=== PATIENT | male | born 1945 | race Caucasian/White ===

== ENCOUNTER → 2024-05-07 07:54 | Outpatient (REF) | payer OTHER, SELFPAY | LOC: WOUND 07:54 | PROVIDERS: ATTENDING PHYSICIAN Surgery; FAMILY PHYSICIAN Physician Assistant | DX: E11.621 Type 2 diabetes mellitus with foot ulcer (principal); L97.422 Non-pressure chronic ulcer of left heel and midfoot with fat layer exposed; M20.40 Other hammer toe(s) (acquired), unspecified foot; E11.40 Type 2 diabetes mellitus with diabetic neuropathy, unspecified; E11.69 Type 2 diabetes mellitus with other specified complication; E11.59 Type 2 diabetes mellitus with other circulatory complications; E11.22 Type 2 diabetes mellitus with diabetic chronic kidney disease | CPT/HCPCS: 11042; 99204 ==

== ENCOUNTER → 2024-05-14 14:21 | Outpatient (REF) | payer OTHER, SELFPAY | LOC: WOUND 14:21 | PROVIDERS: ATTENDING PHYSICIAN Surgery; FAMILY PHYSICIAN Internal Medicine Cardiovascular Disease | DX: E11.621 Type 2 diabetes mellitus with foot ulcer (principal); L97.422 Non-pressure chronic ulcer of left heel and midfoot with fat layer exposed; M20.40 Other hammer toe(s) (acquired), unspecified foot; E11.40 Type 2 diabetes mellitus with diabetic neuropathy, unspecified; E11.69 Type 2 diabetes mellitus with other specified complication; E11.59 Type 2 diabetes mellitus with other circulatory complications; E11.22 Type 2 diabetes mellitus with diabetic chronic kidney disease | CPT/HCPCS: 11042 ==

== ENCOUNTER → 2024-05-21 09:08 | Outpatient (REF) | payer OTHER, SELFPAY | LOC: WOUND 09:08 | PROVIDERS: ATTENDING PHYSICIAN Surgery; FAMILY PHYSICIAN Physician Assistant | DX: E11.621 Type 2 diabetes mellitus with foot ulcer (principal); L97.422 Non-pressure chronic ulcer of left heel and midfoot with fat layer exposed; M20.40 Other hammer toe(s) (acquired), unspecified foot; E11.40 Type 2 diabetes mellitus with diabetic neuropathy, unspecified | CPT/HCPCS: 11042 ==

== ENCOUNTER → 2024-05-28 13:40 | Outpatient (REF) | payer OTHER, SELFPAY | LOC: WOUND 13:40 | PROVIDERS: ATTENDING PHYSICIAN Surgery; FAMILY PHYSICIAN Nurse Practitioner | DX: E11.621 Type 2 diabetes mellitus with foot ulcer (principal); L97.422 Non-pressure chronic ulcer of left heel and midfoot with fat layer exposed; M20.40 Other hammer toe(s) (acquired), unspecified foot; E11.40 Type 2 diabetes mellitus with diabetic neuropathy, unspecified; E11.69 Type 2 diabetes mellitus with other specified complication; E11.59 Type 2 diabetes mellitus with other circulatory complications; E11.22 Type 2 diabetes mellitus with diabetic chronic kidney disease | CPT/HCPCS: 99213 ==

== ENCOUNTER → 2024-06-16 10:40 | Outpatient (REF) | payer OTHER, SELFPAY | LOC: WOUND 10:40 | PROVIDERS: ATTENDING PHYSICIAN Surgery; FAMILY PHYSICIAN Nurse Practitioner | DX: E11.621 Type 2 diabetes mellitus with foot ulcer (principal); L97.422 Non-pressure chronic ulcer of left heel and midfoot with fat layer exposed; M20.40 Other hammer toe(s) (acquired), unspecified foot; E11.40 Type 2 diabetes mellitus with diabetic neuropathy, unspecified; E11.69 Type 2 diabetes mellitus with other specified complication; E11.59 Type 2 diabetes mellitus with other circulatory complications; E11.22 Type 2 diabetes mellitus with diabetic chronic kidney disease | CPT/HCPCS: 99213 ==

== ENCOUNTER → 2024-06-29 13:02 | Outpatient (REF) | payer OTHER, SELFPAY | LOC: WOUND 13:02 | PROVIDERS: ATTENDING PHYSICIAN Surgery; FAMILY PHYSICIAN Nurse Practitioner | DX: E11.621 Type 2 diabetes mellitus with foot ulcer (principal); L97.422 Non-pressure chronic ulcer of left heel and midfoot with fat layer exposed; M20.40 Other hammer toe(s) (acquired), unspecified foot; E11.40 Type 2 diabetes mellitus with diabetic neuropathy, unspecified; E11.69 Type 2 diabetes mellitus with other specified complication; E11.59 Type 2 diabetes mellitus with other circulatory complications; E11.22 Type 2 diabetes mellitus with diabetic chronic kidney disease | CPT/HCPCS: 99213 ==

== ENCOUNTER → 2024-07-16 13:10 | Outpatient (REF) | payer OTHER, SELFPAY | LOC: WOUND 13:10 | PROVIDERS: ATTENDING PHYSICIAN Surgery | DX: L97.422 Non-pressure chronic ulcer of left heel and midfoot with fat layer exposed (principal); M20.40 Other hammer toe(s) (acquired), unspecified foot; E11.40 Type 2 diabetes mellitus with diabetic neuropathy, unspecified; E11.69 Type 2 diabetes mellitus with other specified complication; E11.59 Type 2 diabetes mellitus with other circulatory complications; E11.22 Type 2 diabetes mellitus with diabetic chronic kidney disease; N18.9 Chronic kidney disease, unspecified | CPT/HCPCS: 11042 ==

== ENCOUNTER 2024-07-17 12:09 | Inpatient (IN) | payer OTHER, SELFPAY ==
[2024-07-17] VITALS (17 sets, daily range): BP systolic 130–211; BP diastolic 63–109; PULSE 79; BMI 31.1
--- NOTE | 2024-07-17 05:40 | ED.GENMED ---
History of Present Illness
General
Chief Complaint: Back Pain
Source: patient, family ( and son present at the bedside) and ambulance crew
Exam Limitations: clinical condition
Time Seen by Provider: 07/17/24 04:37
History of Present Illness
History of Present Illness:
This an 79-year-old male presents to the emergency department via ambulance for weakness. According to , he got up to go to the bathroom but could not quite make it. Patient was unable to stand up due to back pain. He states that he has been
having acute on chronic low back pain. Patient received a steroid shot on July 15 in his back. Patient states that the pain did not get alleviated by the steroid. Patient also had a COVID shot 7 days ago but he has been feeling body aches
since. Patient has had loose stools during the week but yesterday he had a normal bowel movement. Patient stated he felt warm this evening. Upon arrival his temperature was 100.3. He did not take anything. Patient is accompanied by his and
son were present at the bedside.
Past History
Past History
ED Past Medical History: Asthma, HTN and Hypercholesterolemia
ED Past Surgical History: None
Social History
Tobacco: Non-smoker
Alcohol: Occasional
Personal:
Living: with family
Review of Systems
Review of Systems
Allergies reviewed?: Yes
Other source history: family
All Other Systems: ROS reviewed and negative except as documented in HPI and ROS
Constitutional: Reports no symptoms
EENT: Reports no symptoms
Respiratory: Reports no symptoms
Cardiac: Reports no symptoms
ABD/GI: Reports no symptoms
: Reports no symptoms
Musculoskeletal: Reports no symptoms
Skin: Reports no symptoms
Neurological: Denies dizzy or headache
Endocrine: Reports no symptoms
Hematologic/Lymphatic: Reports no symptoms
Psychiatric: Reports no symptoms
Phy Exam
General Physical Exam
General Presentation: mild distress
General age: appears older than age
General Skin: warm and dry
General Habitus: elderly and frail
General Mental: alert
General Hydration: appears well hydrated
ENT Exam
ENT Exam: EOMI and neck supple
Cardiovascular Exam
Cardiovascular Exam: regular rate/rhythm
Pulmonary Exam
Pulmonary Exam: lungs clear and no respiratory distress
Neurological Exam
Neurological Exam: alert and oriented x3
Musculoskeletal Exam
Musculoskeletal Exam: full ROM
Skin Exam
Skin Exam: warm/dry and pallor
Psychiatric Exam
Psychiatric Exam: normal mood/affect
Sepsis
Sepsis Screening
Sepsis Assessment: Sepsis Ruled Out
Sepsis Screen
Sepsis Screen: Sepsis Ruled Out
Date: 07/17/24
Time: 07:07
Course
Orders/Labs/Results
Orders:
Orders
07/17/24 05:39
0.9% Sodium Chloride 1000 ml [Nss] 1,000 ml IV BOLUS
07/17/24 05:45
CPK [Creatine Phosphokinase] Urgent
Complete Blood Count/With Diff Urgent
Comprehensive Metabolic Panel Urgent
Lipase Urgent
Urinalysis Reflex To Culture Urgent
Date Specimen was Collected: 07/17/24
Time Specimen was Collected: 05:36
07/17/24 06:19
Acetaminophen [Tylenol] 1,000 mg PO NOW STA
07/17/24 06:58
Case Management Consult ONCE
Case Management Consult: Discharge Planning
PT Consult [Pt Eval And Treat] Urgent
Activity Level: Out of Bed-Early Mobility
Abnormal Lab Results
07/17/24
05:45
RBC 4.56 L 10^6/uL
(4.70-6.10)
MCH 31.6 H pg
(27.0-31.0)
Absolute Neuts (auto) 7.2 H 10^3/uL
(1.4-6.5)
Absolute Lymphs (auto) 0.5 L 10^3/uL
(1.2-3.4)
Neutrophils % 86.9 H %
(42.2-75.2)
Lymphocytes % 5.4 L %
(20.5-51.1)
Urine Glucose 1+ A
(Negative)
07/17/24 05:45
Vital Signs
Initial and Last Documented VS:
Initial Vital Signs
Pulse Resp BP Pulse Ox
104 30 188/81 92
07/17/24 04:34 07/17/24 04:34 07/17/24 04:34 07/17/24 04:34
Last Documented Vital Signs
Temp Pulse Resp BP Pulse Ox
100.1 F 93 28 162/78 91
07/17/24 07:01 07/17/24 07:00 07/17/24 07:00 07/17/24 07:00 07/17/24 07:00
*Critical Care Note
Total Time (30-74mins, 75-104mins- exclusive of procedures): Not Applicable
Update Note
Update Note:
07/17/2024 0659 AM: Patient still feeling weak. Patient lives with and son. Son is not home most nights. is concerned due to his weakness. is unable to get up off the floor. She states that he has had weakness in the past but
this is more severe than typical. Lab work looks unremarkable. Patient did have a history of loose stools but that resolved yesterday. COVID shot aftermath left patient with bodyaches but that is improving. No definitive etiology for the
weakness. Patient does see wound care for his toe. Case management and physical therapy consulted. Patient to be brought in for continued observation.
ED Attending Note
-
Portions of this chart may have been created with voice recognition software.� Occasional wrong word or��sound alike� substitutions may have occurred due to the inherent limitations of voice recognition software.
Discharge Plan
Departure
Patient Disposition: Admit
Date of Disposition: 07/17/24
Time of Disposition: 07:01
Presentation/result/management discussed w/ accepting MD/DO: Hospitalist
Condition: Good
Discharge Problem:
Weakness, Fall
Prescriptions:
No Action
omeprazole 40 MG capsule,delayed release(DR/EC)
40 mg PO DAILY
tamsulosin 0.4 MG capsule
0.4 mg PO DAILY
metformin 1,000 MG tablet
1,000 mg PO BID
montelukast 10 MG tablet
10 mg PO DAILY
fenofibrate 160 MG tablet
160 mg PO HS
Trulicity 0.75 MG/0.5 ML pen injector
0.75 mg SQ WEEKLY
cholecalciferol (vitamin D3) [Vitamin D3] 125 mcg (5,000 unit) Tablet
125 mcg PO DAILY
Probiotic 3 billion cell Capsule
3,000 mmu cells PO DAILY
guaifenesin [Mucinex] 600 mg Tablet Extended Release 12hr
600 mg PO DAILY
Qvar RediHaler 80 mcg/actuation Hfa Aerosol Breath Activated
1 inh INHALATION PRN PRN (Reason: shortness of breath)
latanoprost 0.005 % Drops
1 drp OPHTHALMIC (EYE) QPM
ascorbic acid (vitamin C) [Vitamin C] 250 mg Tablet
250 mg PO .4DAYSAWEEK
coenzyme Q10 [Co Q-10] 100 mg Capsule
100 mg PO DAILY
Calcium Magnesium plus D 400-167-133 mg-mg-unit Tablet
1 tab PO DAILY
omega 5-eln-mse-fish oil [Fish Oil] 1,200 (144-216) mg Capsule
1 cap PO .4DAYSAWEEK
Centrum
1 tab PO DAILY
vitamin E
800 mg PO DAILY
oxycodone 5 mg tablet
5 - 10 mg PO Q6HPRN PRN (Reason: 1 tab moderate-2 tabs severe pain) Qty: 30 0RF
Rx Instructions:
Dx TKA
ongoing therapy
acetaminophen [Acetaminophen Extra Strength] 500 mg tablet
1,000 mg PO Q6H Qty: 60 0RF
Rx Instructions:
DO NOT exceed >4000 mg daily.
docusate sodium [Colace] 100 mg capsule
100 mg PO BID Qty: 60 0RF
sennosides [senna] 8.6 mg tablet
17.2 mg PO BID Qty: 30 0RF
indapamide 2.5 mg Tablet
2.5 mg PO DAILY Qty: 1 0RF
Rx Instructions:
HOLD if systolic blood pressure <145 while on Oxycodone.
amlodipine 2.5 MG tablet
2.5 mg PO DAILY Qty: 1 0RF
Rx Instructions:
HOLD if systolic blood pressure <130 while on Oxycodone.
spironolactone 25 mg Tablet
25 mg PO DAILY Qty: 1 0RF
Rx Instructions:
HOLD if systolic blood pressure <145 while on Oxycodone.
albuterol sulfate 90 mcg/actuation Hfa Aerosol Inhaler
2 puff INHALATION Q4HPRN PRN (Reason: shortness of breath) Qty: 8.5 0RF
levalbuterol HCl 0.31 mg/3 mL Solution For Nebulization
1 mg INHALATION Q6HPRN PRN (Reason: shortness of breath) Qty: 0 0RF
aspirin 325 mg tablet
81 mg PO 4-8XD
Rx Instructions:
Take daily x4 weeks for blood clot prevention; then resume Aspirin 81 mg daily.
meloxicam 15 mg tablet
15 mg PO HS
Rx Instructions:
take with food
post-op
lisinopril 40 MG tablet
40 mg PO HS
Rx Instructions:
HOLD if systolic blood pressure <130 while on Oxycodone.
Referrals:
Donna Murillo CRNP [Family Provider] -
Interventions
Interventions:
*Risk Screen - Suicide Last Done: 07/17/24 04:35
*General Assessment Last Done: 07/17/24 04:35
*Neglect/Abuse Screening Last Done: 07/17/24 04:35
ED- Fall Risk Assessment Last Done: 07/17/24 06:30
*ED COVID-19 Vaccine History Last Done: 07/17/24 04:35
ED-Musculoskeletal Assessment Last Done: 07/17/24 07:04
Discharge Date and Time
Print Language: [place]
[2024-07-17] MEDS: NSS 1000 IV (05:55)
[2024-07-17 06:09] LABS: % Basophils 0.1 % (0-2); % Immature Granulocytes 0.5 % (0-0.5); % Lymphocytes 5.4 % (20.5-51.1); % Monocytes 7.1 % (1.7-9.3); % Neutrophils 86.9 % (42.2-75.2); Absolute Lymphocytes 0.5 10^3/uL (1.2-3.4); Absolute Monocytes 0.6 10^3/uL (0.1-0.6); Absolute Neutrophils 7.2 10^3/uL (1.4-6.5); Hematocrit 41.2 % (39.0-52.0); Hemoglobin 14.4 g/dL (13.0-18.0); Mean Corpuscular Hgb 31.6 pg (27.0-31.0); Mean Corpuscular Volume 90.4 fL (80.0-94.0); Mean Platelet Volume 9.1 fL (7.4-10.4); Nucleated Red Blood Cells % 0 % (-); Platelet Count 219 10^3/uL (130-400); Red Blood Cell Count 4.56 10^6/uL (4.70-6.10); Red Cell Dist. Width 12.6 % (11.5-14.5); White Blood Cell Count 8.3 10^3/uL (4.8-10.8)
[2024-07-17 06:19] LABS: Urine Albumin Trace (Neg - Trace); Urine Bilirubin Negative (Negative); Urine Character Clear (Clear); Urine Color Yellow; Urine Glucose 1+ (Negative); Urine Ketone Negative (Negative); Urine Leukocyte Negative (Negative); Urine Nitrite Negative (Negative); Urine Occult Blood Negative (Negative); Urine Specific Gravity 1.015 (<1.030); Urine Urobilinogen Negative (Neg - 1+)
[2024-07-17] MEDS: TYLENOL 1000 MG PO (06:22)
[2024-07-17 07:09] LABS: Blood Urea Nitrogen 25 mg/dl (9-20); Calcium 9.5 mg/dl (8.4-10.2); Carbon Dioxide 28 mmol/L (22-30); Chloride 95 mmol/L (98-107); Creatine Phosphokinase 167 U/L (55-170); Estimated Creatinine Clearance 78 ml/min; Glucose 178 mg/dl (70-99); Lipase 82 U/L (23-300); Sodium 137 mmol/L (135-145); eGFR > 60.00
--- NOTE | 2024-07-17 08:26 | PHANOTE ---
med rec note- called patient [facility] using but the do not have medication filled for him but metformin and Tricor. used ecw. patient claims he takes oxycodone but no pdmp fills for drug
--- NOTE | 2024-07-17 09:31 | CM ---
Addendum entered by Terri Yip RN 07/17/24 13:14:
CM updated that patient is inpatient.
Addendum entered by Terri Yip RN 07/17/24 11:36:
CM met with family in room. Patient's and son expressed concern regarding patient's clinical presentation. Family had questions regarding the etiology of patient's weakness. Patient's further stated that it is only her to provide care for
him and she stated that she recently had a stroke. She stated that she has children available to assist but they work guide visitor and would not be available 24 hours. Patient is refusing SNF placement from the emergency room. CM discussed with family
and patient SNF may be recommended on discharge pending further PT evaluation. Patient would consider SNF. Patient's stated that she lives [facility] to [facility] and would consider it on discharge.
CM updated hospitalist and ER physician. Plan to bring into the hospital for further observation and disposition efforts.
Original Note:
CM reviewed medical records. CM received call from bedside RN to notify CM of consult. CM will await PT notes.
--- NOTE | 2024-07-17 11:25 | HPS.HSE ---
Family Physician
-
Family Physician: BRANDI Fall
Chief Complaint
-
weakness, chills, acute on chronic lower back pain
History of Present Illness
HPI: 79-year-old male with PMH lower back pain (recent epidural injection 3 days AUTO LOCATOR), Hypertension, Hyperlipidemia, Bifascicular heart block, COPD/ Asthma, Noninsulin-dependent diabetes, Obstructive sleep apnea not on CPAP, GERD, BPH; p/w
generalized weakness, chills, acute on chronic lower back pain since 3 days AUTO LOCATOR (after Epidural injection 07/15 per pt). He has been so weakness that he could not make it to the bathroom.
Of note, he also had COVID shot 7 days AUTO LOCATOR.
Medical History
Past Medical History
Past Medical History: Reports Other
Additional Past Medical History:
lower back pain
Hypertension
Hyperlipidemia
Bifascicular heart block
COPD/ Asthma
Noninsulin-dependent diabetes
Obstructive sleep apnea not on CPAP
GERD
BPH
Past Surgical History: Reports Other
Additional Past Surgical History:
1. Lumbar spine surgery, 1997.
2. Cervical spine surgery, 1999.
3. Right rotator cuff repair, 2001.
4. Sinus surgery.
Social History
Tobacco: Non-smoker
Alcohol: None
Personal:
Living: With Family
Family History
Family History: Not pertinent
Allergies / Home Medications
Allergies reflects when Allergies were last updated in [employer].
Home Medications with original date entered in [employer]
Allergy/Medication List:
Allergies
Allergy/AdvReac Type Severity Reaction Status Date / Time
[id number]-[id number] Reductase Allergy muscle Verified 07/17/24 04:34
Inhibitor weakness
NKA - No Known Allergies Allergy Severe Unknown Uncoded 11/16/22 09:04
Home Medications
fenofibrate 160 mg tablet 160 mg PO HS High cholesterol 05/10/21
metformin 1,000 mg tablet 1,000 mg PO BID Diabetes 05/10/21
montelukast 10 mg tablet 10 mg PO DAILY Allergies 05/10/21
omeprazole 40 mg capsule,delayed release 40 mg PO DAILY Gastrointestinal issue 05/10/21
tamsulosin 0.4 mg capsule 0.4 mg PO DAILY Urinary issue 05/10/21
ascorbic acid (vitamin C) 250 mg tablet (Vitamin C) 250 mg PO SUTUTHFR 11/16/22
beclomethasone dipropionate 80 mcg/actuation HFA breath activated aerosol (Qvar RediHaler) 1 inh inhalation PRN PRN shortness of breath 11/16/22
calcium 400 mg (carbonate)-magnesium 167 mg (oxide)-D3 133 unit tablet (Calcium Magnesium plus D) 1 tab PO DAILY 11/16/22
cholecalciferol (vitamin D3) 125 mcg (5,000 unit) tablet (Vitamin D3) 125 mcg PO DAILY 11/16/22
guaifenesin 600 mg tablet, extended release 12 hr (Mucinex) 600 mg PO DAILY 11/16/22
latanoprost 0.005 % eye drops 1 drp BOTH EYES QPM 11/16/22
therapeutic multivitamin 1 tab PO DAILY ##0 11/16/22
amlodipine 2.5 mg tablet 2.5 mg PO DAILY Blood pressure #1 tab 12/11/22
docusate sodium 100 mg capsule (Colace) 100 mg PO BID #60 caps 12/11/22
indapamide 2.5 mg tablet 2.5 mg PO DAILY #1 tab 12/11/22
sennosides 8.6 mg tablet (senna) 17.2 mg (2 x 8.6 mg) PO BID #30 tabs 12/11/22
spironolactone 25 mg tablet 25 mg PO DAILY #1 tab 12/11/22
albuterol sulfate 90 mcg/actuation aerosol inhaler 2 puff inhalation R Q4HPRN PRN shortness of breath 07/17/24
coQ10 (ubiquinol) 100 mg capsule 100 mg PO DAILY 07/17/24
lisinopril 40 mg tablet 40 mg PO HS Blood pressure 07/17/24
semaglutide 0.25 mg or 0.5 mg (2 mg/1.5 mL) subcutaneous pen injector (Ozempic) 0.25 mg SC [place] 07/17/24
Review of Systems
-
Constitutional: Reports Fatigue (weakness) and Chills
Musculoskeletal: Reports See HPI
Physical Exam
Vital Signs
Vital Signs
Temp Pulse Resp BP Pulse Ox
37.8 C 83 18 135/68 92
07/17/24 07:01 07/17/24 10:15 07/17/24 10:15 07/17/24 10:00 07/17/24 07:15
Physical Exam
General: Well Developed, Well Nourished, No Apparent Distress, Comfortable and Conversant
HEENT: NormoCephalic, Moist mucous membranes and Atraumatic
Respiratory: Clear and Non Labored Respirations; No Accessory Resp Muscle Use
Cardiac: S1/S2 and Regular Rhythm; No Murmur or Rub
GI: Soft, Non Tender, Non Distended and Normal Bowel Sounds; No Organomegaly
Rectal: Deferred by Provider
Musculoskeletal: No Clubbing, No Cyanosis, No Edema and Other (R lumbar area pain)
Skin: No Rash
Neuro: Awake and Alert
Psych: Calm and Intact Judgment/Insight
Laboratory Results
-
07/17/24 05:45
07/17/24 05:45
Laboratory Results
Total Bilirubin Cancelled 07/17/24 05:45
AST Cancelled 07/17/24 05:45
ALT Cancelled 07/17/24 05:45
Alkaline Phosphatase Cancelled 07/17/24 05:45
Lipase 82 U/L (23-300) 07/17/24 05:45
Data Reviewed
-
Lab Data: Labs Reviewed by me
Impression/Plan
-
HPI: 79-year-old male with PMH lower back pain (recent epidural injection 3 days AUTO LOCATOR), Hypertension, Hyperlipidemia, Bifascicular heart block, COPD/ Asthma, Noninsulin-dependent diabetes, Obstructive sleep apnea not on CPAP, GERD, BPH; p/w
generalized weakness, chills, acute on chronic lower back pain since 3 days AUTO LOCATOR (after Epidural injection 07/15 per pt). He has been so weakness that he could not make it to the bathroom.
Of note, he also had COVID shot 7 days AUTO LOCATOR.
A/P:
# generalized weakness, chills
# Acute on chronic R sided lower back pain
UA clean
Check blood Cx, COVID/Flu
Check CRP
cover with empiric Abx ceftriaxone/Vancomycin for now until acute infection has been ruled out
Check lumbar XR and consider MRI
Check TSH reflex FT4 as part of weakness work up
PT OT eval
# Hypertension
Cont AUTO LOCATOR Indapamide, Norvasc, Lisinopril, Aldactone, all with holding parameter
# Hyperlipidemia
# Bifascicular heart block
# COPD/ Asthma, stable
# Noninsulin-dependent diabetes
cover with ISS
# Obstructive sleep apnea not on CPAP
# GERD
PPI
# BPH
Cont AUTO LOCATOR Flomax
DVT ppx: lovenox SQ
FC
[2024-07-17] MEDS: VANCOCIN 540 MG IV (12:21)
[2024-07-17] MEDS: STERILE WATER FOR INJECTION 10 ML IV (12:21)
[2024-07-17] MEDS: ROCEPHIN 1000 MG IV (12:21)
[2024-07-17 12:44] LABS: COVID-19 Antigen Negative (Negative)
--- NOTE | 2024-07-17 13:46 | WOUNDNOTE ---
L 2ND TOE (PLANTAR TIP)
--- NOTE | 2024-07-17 13:50 | WOUNDNOTE ---
WOC RN note: Patient admitted with weakness. He lives with and is followed by [facility] (last seen yesterday).
See H&P for complete history.
PMH: lower back pain, heart block, COPD, asthma, NIDDM, sleep apnea/CPAP, BPH, lumbar and cervical surgery, R rotator cuff repair.
Wound Location and type/assessment: Patient admitted with: L 2nd plantar toe tip diabetic ulcer to subcutaneous layer, small-moderate ss drainage. Minimal local erythema. +Hammer toe deformities. Patient is supposed to see a harvest worker for script
for orthotics. Current wound care is honey gel and Band-Aid daily, L knee high Tubigrip. He wears a flat surgical shoe on L and sneaker on the R. to bring in his flat surgical shoe.
Appetite:
Pressure redistribution devices in place: ED stretcher. He can turn self in bed slowly.
Plan: L 2nd toe dressing changed. L knee high Tubigrip applied. Heels off bed with pillow. Air chair cushion given. Instructed patient pressure injury prevention measures.
Confirm orders with Dr. Addison and discussed with ED RN Karrie.
Care plan to be updated and will follow as needed.
Patient to follow up at wound care center upon discharge and make appointment with podiatry.
[2024-07-17 14:00] LABS: TSH Reflex To Free T4 1.68 uIU/ml (0.47-4.68)
--- NOTE | 2024-07-17 16:28 | PHA.VAN.IN ---
Assessment
- Assessment
Renal Function: Appears similar to baseline
Maximum Temperature: 100.3 F oral 07/17 @ 0435
Concomitant Antimicrobials: ceftriaxone
Plan
- Plan
Initial / Loading Dose: vanc 2000mg administered @ 1221
Maintenance Regimen: dosing by level for now
Monitoring: random level 07/18 0600
Pharmacokinetics Vancomycin I
- -
Patient Age: 79
Patient Sex: Male
Vancomycin Day #: 1
Indication: Other
Requesting Provider: Dr. Addison
Pertinent Antimicrobial Allergies:
no pertinent antimicrobial allergies
Height / Weight:
Height 5 ft 11 in
Actual Weight 101.2 kg
- Vital Signs / Lab Results
Temp Pulse Resp BP Pulse Ox
100.1 F 88 26 179/77 98
07/17/24 07:01 07/17/24 14:30 07/17/24 14:30 07/17/24 14:00 07/17/24 13:17
Lab Results - Hematology
07/17/24
05:45
WBC 8.3
Lab Results - Chemistry
07/17/24
05:45
BUN 25 H
Creatinine 0.9
Estimated Creat Clear 78
Albumin Cancelled
Lab Results - Urine
07/17/24
05:45
Urine Nitrite (Reflex) Negative
Leukocyte Esterase Rfl Negative
Microbiology Results
07/17/24 11:37 Influenza Types A & B (KATE) - Final
Nasal Swab Negative for Influenza A & B, NAAT
Negative results must be combined with clinical observations
and patient history.
Nucleic Acid Amplification test (NAAT)performed on the
[employer] platform.
--- NOTE | 2024-07-17 16:35 | EDRN ---
Report tubed to floor, spoke with Ayde.
--- NOTE | 2024-07-17 17:07 | EDRN ---
Pt's BP 206/101, notified Dr. Addison.
[2024-07-17] MEDS: NOVOLOG FLEXPEN-LOW RESISTANCE SC (18:46)
[2024-07-17 18:47] LABS: Glucose - Point of Care 143 mg/dl (70-99)
[2024-07-17] MEDS: XALATAN OPHTHALMIC SOLUTION 1 DROP BOTH EYES (18:48)
[2024-07-17] MEDS: LOVENOX 40 MG SC (18:48)
[2024-07-17] MEDS: ZESTRIL 40 MG PO (21:04)
[2024-07-17] MEDS: TYLENOL 650 MG PO (21:04)
[2024-07-17 21:41] LABS: Glucose - Point of Care 145 mg/dl (70-99)
[2024-07-18 03:59] VITALS: BP 157/81
[2024-07-18 05:50] LABS: % Basophils 0.5 % (0-2); % Eosinophils 0.2 % (0-6); % Immature Granulocytes 0.4 % (0-0.5); % Lymphocytes 15.2 % (20.5-51.1); % Monocytes 14.4 % (1.7-9.3); % Neutrophils 69.3 % (42.2-75.2); Absolute Lymphocytes 0.9 10^3/uL (1.2-3.4); Absolute Monocytes 0.8 10^3/uL (0.1-0.6); Absolute Neutrophils 3.9 10^3/uL (1.4-6.5); Hematocrit 42.6 % (39.0-52.0); Hemoglobin 14.4 g/dL (13.0-18.0); Mean Corp Hgb Conc. 33.8 g/dL (33.0-37.0); Mean Corpuscular Hgb 31.2 pg (27.0-31.0); Mean Corpuscular Volume 92.2 fL (80.0-94.0); Mean Platelet Volume 9.3 fL (7.4-10.4); Nucleated Red Blood Cells % 0 % (-); Platelet Count 203 10^3/uL (130-400); Red Blood Cell Count 4.62 10^6/uL (4.70-6.10); Red Cell Dist. Width 12.8 % (11.5-14.5); White Blood Cell Count 5.6 10^3/uL (4.8-10.8)
[2024-07-18 06:04] LABS: Blood Urea Nitrogen 18 mg/dl (9-20); Calcium 9.2 mg/dl (8.4-10.2); Carbon Dioxide 29 mmol/L (22-30); Chloride 97 mmol/L (98-107); Estimated Creatinine Clearance 77 ml/min; Glucose 145 mg/dl (70-99); Magnesium 1.5 mg/dl (1.6-2.3); Potassium 3.5 mmol/L (3.5-5.1); Sodium 138 mmol/L (135-145); eGFR > 60.00
[2024-07-18 07:30] VITALS: BP 186/98
[2024-07-18 07:47] LABS: Glucose - Point of Care 140 mg/dl (70-99)
[2024-07-18] MEDS: NOVOLOG FLEXPEN-LOW RESISTANCE SC (08:22)
[2024-07-18] MEDS: MAGNESIUM SULFATE 100 IV (08:29)
[2024-07-18] MEDS: NORVASC 2.5 MG PO (08:34)
[2024-07-18] MEDS: ALDACTONE 25 MG PO (08:34)
[2024-07-18] MEDS: SINGULAIR 10 MG PO (08:35)
[2024-07-18] MEDS: LOZOL 2.5 MG PO (08:35)
[2024-07-18] MEDS: FLOMAX 0.4 MG PO (08:35)
[2024-07-18] MEDS: PROTONIX 40 MG PO (08:35)
[2024-07-18] MEDS: MUCINEX 600 MG PO (08:35)
--- NOTE | 2024-07-18 09:38 | W.PN.HOSP.TC ---
Today's Communication/Plan
-
see A/P
Assessment / Plan
Assessment / Plan
HPI: 79-year-old male with PMH lower back pain (recent epidural injection 3 days AUTO PARKER), Hypertension, Hyperlipidemia, Bifascicular heart block, COPD/ Asthma, Noninsulin-dependent diabetes, Obstructive sleep apnea not on CPAP, GERD, BPH; p/w
generalized weakness, chills, acute on chronic lower back pain since 3 days AUTO PARKER (after Epidural injection 07/15 per pt). He has been so weakness that he could not make it to the bathroom.
Of note, he also had COVID shot 7 days AUTO PARKER.
A/P:
# generalized weakness, chills
# Acute on chronic R sided lower back pain
UA clean, COVID/Flu negative
Follow blood Cx,
CRP elevated at 46
Cover with empiric Abx ceftriaxone/Vancomycin for now until acute infection has been ruled out
lumbar XR unrevealing,
Check lumbar MRI
TSH WNL at 1.68 (checked as part of weakness work up)
PT OT recc HH
# Hypomagnesemia
# hypokalemia
replete lyte
# Hypertension
Cont AUTO PARKER Indapamide, Norvasc, Lisinopril, Aldactone, all with holding parameter
# Hyperlipidemia
# Bifascicular heart block
# COPD/ Asthma, stable
# Noninsulin-dependent diabetes
cover with ISS
# Obstructive sleep apnea not on CPAP
# GERD
PPI
# BPH
Cont AUTO PARKER Flomax
DVT ppx: Lovenox SQ
FC
Anticipated Discharge: 24 - 48 hours
Subjective/Interval History
-
Date of Service: July 18, 2024
Objective Data
-
Labs:
Laboratory Results
07/18/24
05:15
WBC 5.6
Hgb 14.4
Hct 42.6
Plt Count 203
Sodium 138
Potassium 3.5
Chloride 97 L
Carbon Dioxide 29
BUN 18
Creatinine 0.8
Glucose 145 H
Calcium 9.2
Vital Signs:
Vital Signs
Temp Pulse Resp BP Pulse Ox
36.9 C 71 18 189/96 94
07/18/24 07:30 07/18/24 08:34 07/18/24 07:30 07/18/24 08:34 07/18/24 07:30
I&O
07/17/24 07/18/24 07/19/24
06:59 06:59 06:59
Intake Total 120 / 120
Output Total 400 / 400
Balance -280 / -280
Review of Systems
-
All other systems: Reviewed and negative
Musculoskeletal: Reports Joint Pain (lower back pain has somewhat improved )
Physical Exam
-
General: Well Developed, Well Nourished, No Apparent Distress, Comfortable and Conversant; Negative Respiratory Distress
HEENT: Normocephalic, Atraumatic, Nose Appears Normal and Ears Appear Normal; Negative Oxygen
Respiratory: Clear to Auscultation and Non Labored Respirations; Negative Accessory Resp Muscle Use
Cardiac: Regular Rhythm and S1/S2
GI: Soft, Nontender, Nondistended and Normal Bowel Sounds
Skin: Warm and Dry
Neuro: Awake, Alert, Oriented and AO x 3
Psych: Calm and Intact Judgement/Insight
Data Reviewed
-
Diagnostic Radiology: Report Reviewed by me
Labs: Labs Reviewed by me
[2024-07-18 10:00] LABS: Glycohemoglobin (HgbA1c) 6.5 % (4.0-5.6)
[2024-07-18] MEDS: KCL 40 MEQ PO (10:23)
--- NOTE | 2024-07-18 10:53 | CM ---
CM reviewed chart, patient seen bedside, initial assessment completed. Patient resides with his in a split level home, four steps to enter. Patient reports recently had a stroke, has a walker at home from that he can use if needed.
Patient denies VN or SNF history, confirms PCP Donna Murillo, pharmacy [facility], confirms prescription coverage. Patient denies insecurities at home. CM discussed PT recommendations of VN, patient may be agreeable, would like to discuss with
before agreeing to VN. CM will continue to follow for all discharge planning needs.
Plan; home with , undecided regarding VN at this time.
[2024-07-18 11:30] VITALS: BP 163/86
--- NOTE | 2024-07-18 11:40 | PHA.VAN.FU ---
Vancomycin Assessment / Plan
- Assessment
Renal Function: Stable
WBC's are: WNL
In the past 24 hrs, patient has been: Afebrile
Concomitant Antimicrobials: ceftriaxone
- Assessment - Therapeutic Drug Monitoring
Random Level: 6.0 - after 2000 mg LD 07/17 12:21
- Dosing Plan
Adjust Regimen to: 1000 mg q12h
New Regimen Predicts: AUC (520), Peak (30.7), Trough (14.5)
Dosing Comments: used Vd 0.6 L/kg in PK calculation
- Monitoring Plan
No level(s) ordered at this time: consider level after Saturday or Sat dose
- Follow Up
Pharmacy will continue to follow.
Vancomycin Follow UP
- -
Patient Age: 79
Patient Sex: Male
Vancomycin Day #: 2
Indication: Other
Requesting Provider: Dr. Addison
Pertinent Antimicrobial Allergies:
no pertinent antimicrobial allergies
Height / Weight:
Height 5 ft 11 in
Actual Weight 97.522 kg
Pertinent Past Medical History: BMI 30
- Vital Signs / Lab Results
Temp Pulse Resp BP Pulse Ox
98.2 F 79 18 163/86 95
07/18/24 11:30 07/18/24 11:30 07/18/24 11:30 07/18/24 11:30 07/18/24 11:30
Lab Results - Hematology
07/17/24 07/18/24
05:45 05:15
WBC 8.3 5.6
Lab Results - Chemistry
07/17/24 07/18/24
05:45 05:15
BUN 25 H 18
Creatinine 0.9 0.8
Estimated Creat Clear 78 77
Albumin Cancelled
Microbiology Results
07/17/24 11:37 Influenza Types A & B (KATE) - Final
Nasal Swab Negative for Influenza A & B, NAAT
Negative results must be combined with clinical observations
and patient history.
Nucleic Acid Amplification test (NAAT)performed on the
[employer] platform.
Therapeutic Drug Monitoring
Random Vancomycin 6.0 ug/ml 07/18/24 05:15
[2024-07-18] MEDS: ROCEPHIN 1000 MG IV (13:10)
[2024-07-18] MEDS: VANCOCIN 200 IV ×2 (13:10→21:18)
[2024-07-18] MEDS: STERILE WATER FOR INJECTION 10 ML IV (13:11)
[2024-07-18 13:45] LABS: Glucose - Point of Care 154 mg/dl (70-99)
[2024-07-18] MEDS: NOVOLOG FLEXPEN-LOW RESISTANCE 1 UNITS SC ×2 (14:10→17:41)
[2024-07-18 15:20] VITALS: BP 118/61
[2024-07-18 17:23] LABS: Glucose - Point of Care 179 mg/dl (70-99)
[2024-07-18] MEDS: LOVENOX 40 MG SC (17:40)
[2024-07-18] MEDS: XALATAN OPHTHALMIC SOLUTION 1 DROP BOTH EYES (18:15)
[2024-07-18 19:27] VITALS: BP 157/88
[2024-07-18] MEDS: ZESTRIL 40 MG PO (21:18)
[2024-07-18 21:25] LABS: Glucose - Point of Care 133 mg/dl (70-99)
[2024-07-18 23:29] VITALS: BP 149/81
[2024-07-19 03:11] VITALS: BP 138/68
[2024-07-19] MEDS: VANCOCIN 200 IV (05:52)
[2024-07-19 06:51] LABS: % Basophils 0.8 % (0-2); % Eosinophils 3.4 % (0-6); % Immature Granulocytes 0.3 % (0-0.5); % Lymphocytes 26.9 % (20.5-51.1); % Monocytes 17.3 % (1.7-9.3); % Neutrophils 51.3 % (42.2-75.2); Absolute Eosinophils 0.1 10^3/uL (0-0.7); Absolute Monocytes 0.7 10^3/uL (0.1-0.6); Hematocrit 41.8 % (39.0-52.0); Hemoglobin 13.9 g/dL (13.0-18.0); Mean Corp Hgb Conc. 33.3 g/dL (33.0-37.0); Mean Corpuscular Hgb 30.5 pg (27.0-31.0); Mean Corpuscular Volume 91.9 fL (80.0-94.0); Mean Platelet Volume 9.5 fL (7.4-10.4); Nucleated Red Blood Cells % 0 % (-); Platelet Count 223 10^3/uL (130-400); Red Blood Cell Count 4.55 10^6/uL (4.70-6.10); Red Cell Dist. Width 12.6 % (11.5-14.5); White Blood Cell Count 3.9 10^3/uL (4.8-10.8)
[2024-07-19 07:21] LABS: Glucose - Point of Care 166 mg/dl (70-99)
[2024-07-19 07:25] VITALS: BP 172/95
[2024-07-19 07:33] LABS: Blood Urea Nitrogen 25 mg/dl (9-20); Calcium 8.7 mg/dl (8.4-10.2); Carbon Dioxide 28 mmol/L (22-30); Chloride 98 mmol/L (98-107); Estimated Creatinine Clearance 62 ml/min; Glucose 152 mg/dl (70-99); Potassium 3.9 mmol/L (3.5-5.1); Sodium 139 mmol/L (135-145); eGFR > 60.00
[2024-07-19] MEDS: PROTONIX 40 MG PO (07:56)
[2024-07-19] MEDS: MUCINEX 600 MG PO (07:56)
[2024-07-19] MEDS: FLOMAX 0.4 MG PO (07:56)
[2024-07-19] MEDS: ALDACTONE 25 MG PO (07:56)
[2024-07-19] MEDS: LOZOL 2.5 MG PO (07:56)
[2024-07-19] MEDS: NORVASC 2.5 MG PO (07:56)
[2024-07-19] MEDS: SINGULAIR 10 MG PO (07:56)
[2024-07-19] MEDS: NOVOLOG FLEXPEN-LOW RESISTANCE 1 UNITS SC (07:57)
--- NOTE | 2024-07-19 09:44 | W.PN.HOSP.TC ---
Addendum entered and electronically signed by Sanjuana Addison MD 07/19/24 12:17:
total DC time 36 min
Original Note:
Today's Communication/Plan
-
see A/P
Assessment / Plan
Assessment / Plan
HPI: 79-year-old male with PMH lower back pain (recent epidural injection 3 days [employer]), Hypertension, Hyperlipidemia, Bifascicular heart block, COPD/ Asthma, Noninsulin-dependent diabetes, Obstructive sleep apnea not on CPAP, GERD, BPH; p/w
generalized weakness, chills, acute on chronic lower back pain since 3 days [employer] (after Epidural injection 07/15 per pt). He has been so weakness that he could not make it to the bathroom.
Of note, he also had COVID shot 7 days [employer].
A/P:
# generalized weakness, chills
# Acute on chronic R sided lower back pain, improved
UA clean, COVID/Flu negative
blood Cx x2 so far negative,
CRP noted elevated at 46 on admission
lumbar XR unrevealing,
Lumbar MRI: Chronic degenerative changes of the lumbar spine, Moderate spinal canal stenosis at L4-5. Mild spinal canal stenosis at L2-L3 and L3-4. Type I signal changes at L5-S1 with edema in the adjacent L5-S1 intervertebral disc space that is
favored to be degenerative/reactive. Discitis-osteomyelitis would be an alternative consideration if there are signs and symptoms of infection.
Pt's lower back pain has improved, hence felt less likely to be an acute infectious process.
TSH WNL at 1.68 (checked as part of weakness work up)
Pt was covered with empiric Abx ceftriaxone/Vancomycin, since no clear evidence of acute infection, would DC further Abx
PT OT recc HH
# Hypomagnesemia
# hypokalemia
replete lyte
# Hypertension
Cont [employer] Indapamide, Norvasc, Lisinopril, Aldactone, all with holding parameter
# Hyperlipidemia
# Bifascicular heart block
# COPD/ Asthma, stable
# Noninsulin-dependent diabetes
cover with ISS
# Obstructive sleep apnea not on CPAP
# GERD
PPI
# BPH
Cont [employer] Flomax
DVT ppx: Lovenox SQ
FC
DW on the phone
DW CM for HH
Anticipated Discharge: Today
Subjective/Interval History
-
Date of Service: July 19, 2024
Objective Data
-
Labs:
Laboratory Results
07/19/24
05:34
WBC 3.9 L
Hgb 13.9
Hct 41.8
Plt Count 223
Sodium 139
Potassium 3.9
Chloride 98
Carbon Dioxide 28
BUN 25 H
Creatinine 1.0
Glucose 152 H
Calcium 8.7
Vital Signs:
Vital Signs
Temp Pulse Resp BP Pulse Ox
36.4 C 73 20 172/95 93
07/19/24 07:25 07/19/24 07:56 07/19/24 07:25 07/19/24 07:56 07/19/24 07:25
I&O
07/18/24 07/19/24 07/20/24
06:59 06:59 06:59
Intake Total 120 / 120 1380 / 1380
Output Total 400 / 400
Balance -280 / -280 1380 / 1380
Review of Systems
-
All other systems: Reviewed and negative
Musculoskeletal: Reports Joint Pain (lower back pain has improved )
Physical Exam
-
General: Well Developed, Well Nourished, No Apparent Distress, Comfortable and Conversant; Negative Respiratory Distress
HEENT: Normocephalic, Atraumatic, Nose Appears Normal and Ears Appear Normal; Negative Oxygen
Respiratory: Clear to Auscultation and Non Labored Respirations; Negative Accessory Resp Muscle Use
Cardiac: Regular Rhythm and S1/S2
GI: Soft, Nontender, Nondistended and Normal Bowel Sounds
Skin: Warm and Dry
Neuro: Awake, Alert, Oriented and AO x 3
Psych: Calm and Intact Judgement/Insight
Data Reviewed
-
Diagnostic Radiology: Report Reviewed by me
MRI: Report Reviewed by me and Discussed with Family
Labs: Labs Reviewed by me
--- NOTE | 2024-07-19 10:16 | CM ---
Addendum entered by Khloe Smith 07/19/24 10:18:
signed IMM form on the chart
Original Note:
Plan: Discharge to home today with home health services
CM spoke with patient's via phone; explained that home health was ordered by Attending; she is agreeable; no agency preference; referral sent via [facility] to [facility]
will provide transport home
[2024-07-19 11:16] VITALS: BP 82/45
[2024-07-19] MEDS: STERILE WATER FOR INJECTION 10 ML IV (11:19)
[2024-07-19] MEDS: ROCEPHIN 1000 MG IV (11:19)
[2024-07-19 11:54] LABS: Glucose - Point of Care 182 mg/dl (70-99)
--- NOTE | 2024-07-19 12:02 | W.DCSUMMARY ---
Discharge Summary
Discharge Data
Date of Admission: 07/17/24
Date of Discharge: 07/19/24
-
Pending Results: No
Hospital Course
Principal Diagnosis:
Generalized weakness, improved
Chronic Diagnoses:�
Hypertension
Hyperlipidemia
Bifascicular heart block
COPD/ Asthma, stable
Noninsulin-dependent diabetes
Obstructive sleep apnea not on CPAP
GERD
BPH on Flomax
Consultations:�
None
Procedures:�
None
Clinical course:�
This is a 79-year-old male with past medical history as stated above, who presented with generalized weakness, chills, acute on chronic lower back pain since his recent epidural injection 07/15/2024.
Of note, he also had COVID shot 7 days [employer].
Problem 1:
Generalized weakness, resolved.
Workup for his weakness was unrevealing: UA clean, COVID/Flu negative, blood Cx x2 negative, TSH WNL at 1.68, Lumbar XR unrevealing.
Lumbar MRI was checked since patient complained of acute on chronic lower back pain after recent epidural injection, noted: chronic degenerative changes of the lumbar spine, Moderate spinal canal stenosis at L4-5. Mild spinal canal stenosis at L2-L3
and L3-4. Type I signal changes at L5-S1 with edema in the adjacent L5-S1 intervertebral disc space that is favored to be degenerative/reactive.
Patient's lower back pain improved, hence it was felt less likely to be an acute infectious process.
He did receive empiric antibiotic ceftriaxone and vancomycin while in the hospital (received for 3 days), since there is no clear evidence of acute infection, further antibiotic was discontinued.
He was discharged home with home health for PT OT recommendation.
As for the rest of his medical problems, they were stable during his hospital stay.
Discharge Plan
-
Patient Disposition: Home with Home Care
Discharge Diagnosis/Procedures: Generalized weakness with Acute on chronic R sided lower back pain- improved
Condition: Fair
Diet: As tolerated
Activity: As tolerated
Driving Restrictions: Not until seen by your Dr
Wound Care: Wound Care Instructions
L 2nd toe tip ulcer-clean with saline or Vashe wound cleanser, honey gel, alginate, cover with silicone foam and/or Band-Aid, change daily and as needed for drainage.
Flat surgical shoe L foot and sneaker on R foot during ambulation.
Elevate heels off bed with pillow/s.
Make appointment with a car shakeout operator for orthotic shoes.
Follow up at wound care center call for an appointment.
Referrals:
Donna Murillo CRNP [Family Provider] - in less than 1 week
Prescriptions:
Continued
omeprazole 40 MG capsule,delayed release(DR/EC)
40 mg PO DAILY
tamsulosin 0.4 MG capsule
0.4 mg PO DAILY
metformin 1,000 MG tablet
1,000 mg PO BID
montelukast 10 MG tablet
10 mg PO DAILY
fenofibrate 160 MG tablet
160 mg PO HS
cholecalciferol (vitamin D3) [Vitamin D3] 125 mcg (5,000 unit) Tablet
125 mcg PO DAILY
guaifenesin [Mucinex] 600 mg Tablet Extended Release 12hr
600 mg PO DAILY
Qvar RediHaler 80 mcg/actuation Hfa Aerosol Breath Activated
1 inh INHALATION PRN PRN (Reason: shortness of breath)
latanoprost 0.005 % Drops
1 drp BOTH EYES QPM
therapeutic multivitamin Tablet
1 tab PO DAILY Qty: 0
ascorbic acid (vitamin C) [Vitamin C] 250 mg Tablet
250 mg PO SUTUTHFR
Calcium Magnesium plus D 400-167-133 mg-mg-unit Tablet
1 tab PO DAILY
docusate sodium [Colace] 100 mg capsule
100 mg PO BID Qty: 60 0RF
sennosides [senna] 8.6 mg tablet
17.2 mg PO BID Qty: 30 0RF
indapamide 2.5 mg Tablet
2.5 mg PO DAILY Qty: 1 0RF
Rx Instructions:
HOLD if systolic blood pressure <145 while on Oxycodone.
amlodipine 2.5 MG tablet
2.5 mg PO DAILY Qty: 1 0RF
Rx Instructions:
HOLD if systolic blood pressure <130 while on Oxycodone.
spironolactone 25 mg Tablet
25 mg PO DAILY Qty: 1 0RF
lisinopril 40 MG tablet
40 mg PO HS
Rx Instructions:
HOLD if systolic blood pressure <130 while on Oxycodone.
coQ10 (ubiquinol) 100 mg Capsule
100 mg PO DAILY
Ozempic 0.25 mg or 0.5 mg(2 mg/1.5 mL) Pen Injector
0.25 mg SC PALUMBO
Patient Comments:
07/17/24- pharmacy did not have med until yesterday 07/16/24 so patien took when he got home from pharmacy
Rx Instructions:
for 4 weeks
albuterol sulfate 90 mcg/actuation HFA aerosol inhaler
2 puff INHALATION R Q4HPRN PRN (Reason: shortness of breath)
Discharge Orders:
Discharge Patient (As Directed); Ordered 07/19/24
Ordered By: Sanjuana Addison
Discharge Date and Time
Print Language: JAPANESE
== END 2024-07-19 13:20 | disposition home health service (06) | DRG 948 ==
LOC: 4 EAST ACU 12:09
PROVIDERS: ADMITTING PHYSICIAN Internal Medicine; EMERGENCY PHYSICIAN Student in an Organized Health Care Education/Training Program; FAMILY PHYSICIAN Nurse Practitioner
DX: R53.1 Weakness (principal); I45.2 Bifascicular block; E11.9 Type 2 diabetes mellitus without complications; I10 Essential (primary) hypertension; J44.89 Other specified chronic obstructive pulmonary disease; G89.29 Other chronic pain; M54.50 Low back pain, unspecified; M48.061 Spinal stenosis, lumbar region without neurogenic claudication; M47.816 Spondylosis without myelopathy or radiculopathy, lumbar region; R68.83 Chills (without fever); E78.00 Pure hypercholesterolemia, unspecified; K21.9 Gastro-esophageal reflux disease without esophagitis; G47.33 Obstructive sleep apnea (adult) (pediatric); N40.0 Benign prostatic hyperplasia without lower urinary tract symptoms; Z79.84 Long term (current) use of oral hypoglycemic drugs; Z79.85 Long-term (current) use of injectable non-insulin antidiabetic drugs; Z79.899 Other long term (current) drug therapy; Z98.890 Other specified postprocedural states; Z11.52 Encounter for screening for COVID-19
CPT/HCPCS: 71046; 72100; 72158; 80048; 80202; 81003; 82550; 82962; 83036; 83690; 83735; 84443; 85025; 86140; 87040; 87070; 87502; 87811; 93005; 96360; 99285; A9575

== ENCOUNTER 2024-08-25 20:35 | Inpatient (IN) | payer OTHER, SELFPAY ==
[2024-08-25 16:14] VITALS: BP 109/59
[2024-08-25 16:29] LABS: % Basophils 0.2 % (0-2); % Immature Granulocytes 0.3 % (0-0.5); % Lymphocytes 9.5 % (20.5-51.1); % Monocytes 7.5 % (1.7-9.3); % Neutrophils 81.5 % (42.2-75.2); Absolute Eosinophils 0.1 10^3/uL (0-0.7); Absolute Lymphocytes 0.9 10^3/uL (1.2-3.4); Absolute Monocytes 0.7 10^3/uL (0.1-0.6); Absolute Neutrophils 7.8 10^3/uL (1.4-6.5); Hematocrit 38.3 % (39.0-52.0); Hemoglobin 13.4 g/dL (13.0-18.0); Mean Corpuscular Hgb 31.1 pg (27.0-31.0); Mean Corpuscular Volume 88.9 fL (80.0-94.0); Mean Platelet Volume 9.1 fL (7.4-10.4); Nucleated Red Blood Cells % 0 % (-); Platelet Count 271 10^3/uL (130-400); Red Blood Cell Count 4.31 10^6/uL (4.70-6.10); Red Cell Dist. Width 12.9 % (11.5-14.5); White Blood Cell Count 9.5 10^3/uL (4.8-10.8)
[2024-08-25 16:47] LABS: ALT (SGPT) 35 U/L (0-50); AST (SGOT) 34 U/L (17-59); Albumin 3.8 g/dl (3.5-5.0); Alkaline Phosphatase 39 U/L (38-126); Blood Urea Nitrogen 22 mg/dl (9-20); Calcium 9.1 mg/dl (8.4-10.2); Carbon Dioxide 33 mmol/L (22-30); Chloride 92 mmol/L (98-107); Glucose 205 mg/dl (70-99); Potassium 3.2 mmol/L (3.5-5.1); Sodium 133 mmol/L (135-145); Total Bilirubin 0.6 mg/dl (0.2-1.3); Total Protein 6.5 g/dl (6.3-8.2); eGFR > 60.00
[2024-08-25 18:00] VITALS: BP 130/55
--- NOTE | 2024-08-25 18:55 | ED.SKININJ ---
HPI-Injury
General
Chief Complaint: Skin Problem
Source: patient and family (spouse, daughter)
Time Seen by Provider: 08/25/24 18:34
History of Present Illness-Injury
Is this injury a work related problem?: No
Is pt an associate of [facility]?: No
Initial Injury comments:
Patient to ED wt complaint of pain redness and swelling to left 2nd toe. According to patient he had surgery for hammer toe last week. Was seen by surgeon on Saturday and states everything looked ok. Over the weekend he developed redness and
swelling. He was placed on Keflex 500mg qid yesterday. He has had 6 doses. Erythema is spreading. Now with large amt of foul swelling drainage from toe. Denies fever/chills. Brought to ED by family. for eval. History of healed ulcer to tip of
this same toe.
Past History
Past History
ED Past Medical History: Asthma, HTN, Hypercholesterolemia and NIDDM
ED Past Surgical History: Other (Surgery for hammer-toe last week)
Social History
Tobacco: Non-smoker
Alcohol: Occasional
Personal:
Living: with family
Review of Systems
Review of Systems
Allergies reviewed?: Yes
All Other Systems: ROS reviewed and negative except as documented in HPI and ROS
Constitutional: Reports no symptoms
EENT: Reports no symptoms
Respiratory: Reports no symptoms
Cardiac: Reports no symptoms
ABD/GI: Reports no symptoms
Musculoskeletal: Reports no symptoms
Skin: Reports other (Pain redness swelling discharged left plantar 2nd toe)
Neurological: Reports no symptoms
Psychiatric: Reports no symptoms
Phy Exam
General Physical Exam
General Presentation: no apparent distress
General age: appears stated age
General Skin: warm and dry
General Habitus: normal
General Mental: alert
Musculoskeletal Exam
Musculoskeletal Exam: full ROM and neuro vasc intact
Skin Exam
Skin Exam: other (Pain redness swelling to left 2nd toe. Fouls smelling yellow drainage from plantar surface of toe. Erythema extending to dorsum of foot. Had surgery for hammer-toe last week.)
Psychiatric Exam
Psychiatric Exam: normal mood/affect
Course
Orders/Labs/Results
Orders:
Orders
08/25/24 Dinner
2200 calorie (18 carb) Diabetic
At Your Request: Full Participation
08/25/24 16:21
C-Reactive Protein Urgent
Comment: ADD ON
CMP [Comprehensive Metabolic Panel] Urgent
Complete Blood Count/With Diff Urgent
Erythrocyte Sed Rate Urgent
Comment: ADD ON
08/25/24 19:19
Toes 2 Views, Left CR [CR Toe(s) Min 2 Vw Left] Urgent
Comment:
Reason For Exam: cellulitis
08/25/24 19:21
Vancomycin [Vancocin] 1,500 mg 0.9% Sodium Chloride 500 ml [Nss] 500 ml IV NOW
08/25/24 19:34
Wound Culture [Wound/Abscess/Other Culture] Urgent
JANETTE Source: Toe
Specimen Description:
Date Specimen was Collected: 08/25/24
Time Specimen was Collected: 19:33
08/25/24 20:02
Admit/Transfer Patient As Directed
Co-Sign Provider:
Level of Care: Inpatient admission
Assign to:: Medical/Surgical
Physician / Group: hospitalist
Diagnosis: left 2nd toe cellulitis
Reason for Hospitalization: cellulitis
Expected length of stay greater than two midnights?: Yes
ELOS- Estimated Length of Stay in days: 2
I certify the patient meets the requirements for IP care: Yes
PRN Pain Medication Management As Directed
May give lesser potent ordered pain med per pt: Yes
preference::
Protocol:: Medication orders for pain may be administered in a
manner that supports deferring to patient preference
when the pt is:
- Requesting an ordered lesser potent pain medication.
Least to most potent pain medications are defined
as: acetaminophen < NSAID < tramadol < opioids
(morphine, oxycodone, hydromorphone).
- Requesting a lesser dose of the same medication IF
ORDERED.
- Requesting a less intrusive route of administration
if both routes are prescribed by the provider (PO <
IV).
08/25/24 20:10
Code Status As Directed
Resuscitation Status: Full Code
08/25/24 20:13
Add On- LAB Stat
Tests Added?: ESR, CRP
Potassium Chloride [KCl] 40 meq PO NOW STA
08/25/24 21:14
Acetaminophen [Tylenol] 650 mg PO Q4HPRN PRN
Albuterol [ProAIR HFA INHALER] 2 puff INH R Q4HPRN PRN
Bisacodyl [Dulcolax] 10 mg RECTAL [id number] PRN
Docusate W/Senna [Senokot-S] 1 tablet PO BIDPRN PRN
Ondansetron Injectable [Zofran] 4 mg IV Q6HPRN PRN
Oxycodone [Roxicodone] 5 mg PO Q4HPRN PRN
Polyethylene Glycol Powder [Miralax] 17 grams PO DAILYPRN PRN
08/25/24 21:14
MRSA Screen Routine
JANETTE Source: Nose
Specimen Description:
Activity As Directed
Activity Level: With Assistance
Bedside Glucose Monitoring As Directed
Frequency: AC&HS
Vital Signs As Directed
Frequency: Per unit guidelines
DX Deep Vein Thrombosis Video Routine
08/25/24 21:37
FLUTICASONE PROPIONATE 44 mcg [Flovent 44 Mcg Inhaler] 1 puff INH R BIDPRN PRN
08/25/24 22:00
Fenofibrate 145 [Tricor] 145 mg PO HS
Lisinopril [Zestril] 40 mg PO HS
08/26/24 06:00
Basic Metabolic Panel IN AM
Complete Blood Count/No Diff IN AM
Magnesium IN AM
08/26/24 07:30
Insulin Aspart Corrective Low [Novolog Flexpen-Low Resistance] See Protocol SC AC
08/26/24 08:00
Amlodipine [Norvasc] 2.5 mg PO DAILY
Guaifenesin [Mucinex] 600 mg PO DAILY
Indapamide [Lozol] 2.5 mg PO DAILY
Ipratropium/Albuterol Sulfate [Duoneb] 3 ml INH R QID
METFORMIN HCl [Glucophage] 1,000 mg PO BID
Montelukast Sodium [Singulair] 10 mg PO DAILY
Pantoprazole [Protonix] 40 mg PO DAILY
Spironolactone [Aldactone] 25 mg PO DAILY
Tamsulosin [Flomax] 0.4 mg PO DAILY
08/26/24 18:00
Enoxaparin Sodium [Lovenox] 40 mg SC QPM
Latanoprost [Xalatan Ophthalmic Solution] See Dose Instructions BOTH EYES QPM
Abnormal Lab Results
08/25/24
16:21
RBC 4.31 L 10^6/uL
(4.70-6.10)
Hct 38.3 L %
(39.0-52.0)
MCH 31.1 H pg
(27.0-31.0)
Absolute Neuts (auto) 7.8 H 10^3/uL
(1.4-6.5)
Absolute Lymphs (auto) 0.9 L 10^3/uL
(1.2-3.4)
Absolute Monos (auto) 0.7 H 10^3/uL
(0.1-0.6)
Neutrophils % 81.5 H %
(42.2-75.2)
Lymphocytes % 9.5 L %
(20.5-51.1)
Sodium 133 L mmol/L
(135-145)
Potassium 3.2 L mmol/L
(3.5-5.1)
Chloride 92 L mmol/L
(98-107)
Carbon Dioxide 33 H mmol/L
(22-30)
BUN 22 H mg/dl
(9-20)
Glucose 205 H mg/dl
(70-99)
C-Reactive Protein 177.80 H mg/L
(0.0-10.00)
08/25/24 16:21
08/25/24 16:21
Vital Signs
Initial and Last Documented VS:
Initial Vital Signs
Temp Pulse Resp BP Pulse Ox
98.9 F 85 18 109/59 96
08/25/24 16:14 08/25/24 16:14 08/25/24 16:14 08/25/24 16:14 08/25/24 16:14
Last Documented Vital Signs
Temp Pulse Resp BP Pulse Ox
98.4 F 89 16 141/80 94
08/25/24 23:25 08/25/24 23:25 08/25/24 23:25 08/25/24 23:25 08/25/24 23:25
*Critical Care Note
Total Time (30-74mins, 75-104mins- exclusive of procedures): Not Applicable
Update Note
Update Note:
Patient to ED for eval of redness swelling and drainage from left 2nd toe. Symptoms started this weekend He had surgery for hammer toe last week. Started on Keflex 500mg qid yesterday. He has had 6 doses. Now with large amt of fouls smelling
drainage and increasing erythema extending to dorsum of his foot. Labs reviewed. WBC normal. Xray pending. Culture obtained from surgical wound of left 2nd toe. Results pending. Placed on IV vancomycin. He remains afebrile. Will admit to
hospitalist service for cellulitis left 2nd toe.
ED Attending Note
-
Portions of this chart may have been created with voice recognition software.� Occasional wrong word or��sound alike� substitutions may have occurred due to the inherent limitations of voice recognition software.
Discharge Plan
Departure
Patient Disposition: Admit
Date of Disposition: 08/25/24
Time of Disposition: 19:28
Presentation/result/management discussed w/ accepting MD/DO: Hospitalist
Condition: Fair
Covid-19: Not Applicable
Discharge Problem:
Cellulitis of toe of left foot
Interventions
Interventions:
*Risk Screen - Suicide Last Done: 08/25/24 16:14
*General Assessment Last Done: 08/25/24 16:14
*Neglect/Abuse Screening Last Done: 08/25/24 16:14
*ED COVID-19 Vaccine History Last Done: 08/25/24 16:14
*Nursing Disposition Last Done: 08/25/24 21:13
Discharge Date and Time
Discharge Date/Time: 08/25/24 21:14
[2024-08-25 19:20] VITALS: BMI 29.4
[2024-08-25] MEDS: VANCOCIN 530 MG IV (19:47)
--- NOTE | 2024-08-25 19:49 | HPS.HSE ---
Family Physician
-
Family Physician: BRANDI Fall
Chief Complaint
-
Left second toe swelling and pain
History of Present Illness
This is a 79-year-old with multiple medical comorbidities including reb-dzfrczm-dllqvndoh diabetes hypertension hyperlipidemia COPD and NOEMI presenting to the emergency department with redness and swelling around the left second toe.
Patient reports that he has had issues with that toe for several weeks and has been followed by outpatient podiatry(Dr. Pena) and wound care. He was seen by podiatry on Saturday and had procedure done to correct the hammertoe. A stitch was
placed. On Saturday the patient started having increased redness and swelling. Family stated that there was some drainage today. They did calling and received Keflex which was started yesterday afternoon. Patient has also been having intermittent
fevers with a cough. He was diagnosed with COVID based on a positive test at home on Saturday. Not requiring oxygen at the moment however family stated that he was close requiring oxygen 2 days ago.
In the emergency department he was afebrile, blood pressure was 130/55 with pulse of 78 and respiratory rate was 20 satting 95% on room air. White count was 9.5 with normal hemoglobin and platelet count. Electrolytes notable for a sodium of 133
and potassium of 3.3 otherwise unremarkable with normal BUN and creatinine. LFTs were all within normal limits.
Medical History
Past Medical History
Past Medical History: Reports COPD, HTN, Hypercholesterolemia and NIDDM
Additional Past Medical History:
NOEMI on CPAP
BPH
Past Surgical History: Reports Other
Social History
Tobacco: Former Smoker
Alcohol: None
Drug: None
Personal:
Living: With Family
Employment: Retired
Family History
Family History: Not pertinent
Allergies / Home Medications
Allergies reflects when Allergies were last updated in [facility].
Home Medications with original date entered in [facility]
Allergy/Medication List:
Allergies
Allergy/AdvReac Type Severity Reaction Status Date / Time
Oycfvbi-CZK-QfA Reductase Allergy muscle Verified 07/17/24 04:34
Inhibitor weakness
Home Medications
fenofibrate 160 mg tablet 160 mg PO HS High cholesterol 05/10/21
metformin 1,000 mg tablet 1,000 mg PO BID Diabetes 05/10/21
montelukast 10 mg tablet 10 mg PO DAILY Allergies 05/10/21
omeprazole 40 mg capsule,delayed release 40 mg PO DAILY Gastrointestinal issue 05/10/21
tamsulosin 0.4 mg capsule 0.4 mg PO DAILY Urinary issue 05/10/21
ascorbic acid (vitamin C) 250 mg tablet (Vitamin C) 250 mg PO SUTUTHFR 11/16/22
beclomethasone dipropionate 80 mcg/actuation HFA breath activated aerosol (Qvar RediHaler) 1 inh inhalation PRN PRN shortness of breath 11/16/22
calcium 400 mg (carbonate)-magnesium 167 mg (oxide)-D3 133 unit tablet (Calcium Magnesium plus D) 1 tab PO DAILY 11/16/22
cholecalciferol (vitamin D3) 125 mcg (5,000 unit) tablet (Vitamin D3) 125 mcg PO DAILY 11/16/22
guaifenesin 600 mg tablet, extended release 12 hr (Mucinex) 600 mg PO DAILY 11/16/22
latanoprost 0.005 % eye drops 1 drp BOTH EYES QPM 11/16/22
therapeutic multivitamin 1 tab PO DAILY ##0 11/16/22
amlodipine 2.5 mg tablet 2.5 mg PO DAILY Blood pressure #1 tab 12/11/22
docusate sodium 100 mg capsule (Colace) 100 mg PO BID #60 caps 12/11/22
indapamide 2.5 mg tablet 2.5 mg PO DAILY #1 tab 12/11/22
sennosides 8.6 mg tablet (senna) 17.2 mg (2 x 8.6 mg) PO BID #30 tabs 12/11/22
spironolactone 25 mg tablet 25 mg PO DAILY #1 tab 12/11/22
albuterol sulfate 90 mcg/actuation aerosol inhaler 2 puff inhalation R Q4HPRN PRN shortness of breath 07/17/24
coQ10 (ubiquinol) 100 mg capsule 100 mg PO DAILY 07/17/24
lisinopril 40 mg tablet 40 mg PO HS Blood pressure 07/17/24
semaglutide 0.25 mg or 0.5 mg (2 mg/1.5 mL) subcutaneous pen injector (Ozempic) 0.25 mg SC PALUMBO 07/17/24
Review of Systems
-
History Source: Patient and Family
Constitutional: Reports No Symptoms
EENT: Reports No Symptoms
Respiratory: Reports No Symptoms
Cardiac: Reports No Symptoms
Abdomen/GI: Reports No Symptoms
: Reports No Symptoms
Musculoskeletal: Reports Joint Pain and Joint Swelling
Skin: Reports No Symptoms
Neurological: Reports No Symptoms
Endocrine: Reports No Symptoms
Psych: Reports No Symptoms
Physical Exam
Vital Signs
Vital Signs
Temp Pulse Resp BP Pulse Ox
98.9 F 78 20 130/55 95
08/25/24 16:14 08/25/24 18:00 08/25/24 18:00 08/25/24 18:00 08/25/24 18:00
Physical Exam
General: Well Developed, Well Nourished, Comfortable and Conversant
HEENT: NormoCephalic, Anicteric, Moist mucous membranes and Atraumatic
Respiratory: Clear
Cardiac: S1/S2 and Regular Rhythm
GI: Soft, Non Tender, Non Distended and Normal Bowel Sounds
Rectal: Deferred by Provider
Genito-urinary: Deferred by me
Musculoskeletal: No Clubbing, No Cyanosis and No Edema
Skin: Warm and Other (left 2nd toe with erythema extending to the feet, edema and tenderness to palpation. No obvious collection on my exam. One stitch in place looks well)
Neuro: AO x 3 and Nonfocal/grossly intact
Hematologic/Lymphatic: No Lymphadenopathy
Laboratory Results
-
08/25/24 16:21
08/25/24 16:21
Laboratory Results
Total Bilirubin 0.6 mg/dl (0.2-1.3) 08/25/24 16:21
AST 34 U/L (17-59) 08/25/24 16:21
ALT 35 U/L (0-50) 08/25/24 16:21
Alkaline Phosphatase 39 U/L (38-126) 08/25/24 16:21
Data Reviewed
-
Diagnostic Radiology: Report Reviewed by me
Lab Data: Labs Reviewed by me
Old Records: Reviewed
Impression/Plan
-
IMPRESSION:
79 y.o male with left toe cellulitis. Started keflex yesterday. Has known hammer-toe s/p correction by podiatry on Saturday with a stich in place. No obvious collection for me. Recent COVID infection. No oxygen requirement at this time.
PLAN:
1. Foot cellulitis with posiible left toe infection
- admit to med/surg
- foot xray, esr, crp
- IV vancomycin for now
-ID consultation
2. COVID 19 infection - Stable, started over 5 days ago.
- supportive care for now,
3. COPD - no acute exacerbation
- continue home inhalers and prn albuterol
4. DM II
- sliding scale insulin
- metformin 1000 bid
hypo K, hyponatremia- K 3.2, Na 133, on indapamide/spironolactone
- oral correction of K ok
- check mag and sodium after K correction
DVT PPX - lovenox sq
Code status - full code
[2024-08-25 20:00] VITALS: BP 145/65
[2024-08-25 20:50] LABS: Erythrocyte Sed Rate 12 mm/hour (0-20)
[2024-08-25 21:00] VITALS: BP 126/61
[2024-08-25 21:21] VITALS: BP 184/92
[2024-08-25 21:22] VITALS: BMI 29.8
--- NOTE | 2024-08-25 21:40 | PHA.VAN.IN ---
Assessment
- Assessment
Renal Function: Appears similar to baseline
AUC Dosing Plan
- Dosing Variables
Dosing Weight (kg): 96
Dosing CrCl (ml/min): 69
Vd coefficient (L/kg): 0.7
- Empiric Dosing
Initial / Loading Dose: VANCO 1500 MG X1
Maintenance Regimen: VANCO 1000 MG Q12
Estimated AUC (mcg*h/mL): 505
Estimated Peak (mcg*h/mL): 28.5
Estimated Trough (mcg/ml): 14.9
Estimated Half Life (H): 11.2
- Monitoring
No levels ordered at this time: CONSIDER LEVEL PRIOR TO 4TH MAINTENANCE DOSE
Pharmacokinetics Vancomycin I
- -
Patient Age: 79
Patient Sex: Male
Vancomycin Day #: 1
Indication: SSTI
Requesting Provider: IVAN
Height / Weight:
Height 5 ft 11 in
Actual Weight 96.729 kg
Pertinent Past Medical History: DM
- Vital Signs / Lab Results
Temp Pulse Resp BP Pulse Ox
98.1 F 95 18 184/92 95
08/25/24 21:21 08/25/24 21:21 08/25/24 21:21 08/25/24 21:21 08/25/24 21:21
Lab Results - Hematology
08/25/24
16:21
WBC 9.5
Lab Results - Chemistry
08/25/24
16:21
BUN 22 H
Creatinine 1.0
Albumin 3.8
--- NOTE | 2024-08-25 21:42 | PTCARENOTE ---
admitted to 325- ax3 lungs clear- hr reg with murmur- left great toe is swollen and red- no drainage- abx running per orders- pt is able to ambulate but with significant pain- - oriented to room and placed on covid precautions
[2024-08-25] MEDS: ZESTRIL 40 MG PO (21:54)
[2024-08-25] MEDS: TRICOR 145 MG PO (21:54)
[2024-08-25] MEDS: KCL 40 MEQ PO (21:55)
[2024-08-25 22:04] LABS: Glucose - Point of Care 135 mg/dl (70-99)
[2024-08-25 23:25] VITALS: BP 141/80
[2024-08-26] MEDS: TYLENOL 650 MG PO (02:34)
[2024-08-26] MEDS: ROXICODONE 5 MG PO ×2 (02:35→22:31)
[2024-08-26] MEDS: VANCOCIN 200 IV ×2 (05:09→16:51)
[2024-08-26 06:00] VITALS: BMI 29.8
[2024-08-26 06:23] LABS: Hematocrit 35.8 % (39.0-52.0); Hemoglobin 12.6 g/dL (13.0-18.0); Mean Corp Hgb Conc. 35.2 g/dL (33.0-37.0); Mean Corpuscular Hgb 31.3 pg (27.0-31.0); Mean Corpuscular Volume 89.1 fL (80.0-94.0); Mean Platelet Volume 9.1 fL (7.4-10.4); Platelet Count 260 10^3/uL (130-400); Red Blood Cell Count 4.02 10^6/uL (4.70-6.10); White Blood Cell Count 7.6 10^3/uL (4.8-10.8)
[2024-08-26 06:45] VITALS: BP 129/74
[2024-08-26 07:04] LABS: Blood Urea Nitrogen 21 mg/dl (9-20); Calcium 8.9 mg/dl (8.4-10.2); Carbon Dioxide 32 mmol/L (22-30); Chloride 93 mmol/L (98-107); Estimated Creatinine Clearance 62 ml/min; Glucose 182 mg/dl (70-99); Magnesium 1.5 mg/dl (1.6-2.3); Potassium 3.1 mmol/L (3.5-5.1); Sodium 133 mmol/L (135-145); eGFR > 60.00
[2024-08-26 07:50] LABS: Glucose - Point of Care 159 mg/dl (70-99)
[2024-08-26] MEDS: MAGNESIUM SULFATE 50 IV (08:38)
[2024-08-26] MEDS: KCL 40 MEQ PO (08:38)
--- NOTE | 2024-08-26 08:38 | W.PN.HOSP.TC ---
Today's Communication/Plan
-
see PN
Assessment / Plan
Assessment / Plan
79yo M with PMHX of DM, HTN, HLD, COPD, NOEMI came with redness and swelling of the L 2nd toe started on the day prior. He had a wound on it for past 4 month and had surgical procedure in the ffice of less the 1 week ago. On the follow up
5 days prior to admission - no postOP concerns, as per patient.
A/P:
#L 2nd great to diabetic wound s/p recent tendon resection with cellulitis
XR unremarkable
Need MRI LLE
VAnco/Cefepime pending wound Cx
CRP 177
ESR WNL
wound care
#Hypomagnesemia
#Hypokalemia
replete and follow
#DM type 2 with neuropathy
Insulin SS, Accuchecks and DM diet
Hold Metformin
#Essential HTN
#COPD not in exacerbation
#HLD
#Glaucoma
#BPH
cont home meds
DVT ppx lovenox
Full code
I yuki spent at least 56min reviewing chart, test results, communication with consultants and direct patient care
Anticipated Discharge: > 48 hours
Subjective/Interval History
-
Date of Service: August 26, 2024
Objective Data
-
Labs:
Laboratory Results
08/26/24
05:57
WBC 7.6
Hgb 12.6 L
Hct 35.8 L
Plt Count 260
Sodium 133 L
Potassium 3.1 L
Chloride 93 L
Carbon Dioxide 32 H
BUN 21 H
Creatinine 1.0
Glucose 182 H
Calcium 8.9
Vital Signs:
Vital Signs
Temp Pulse Resp BP Pulse Ox
98.1 F 80 20 129/74 98
08/26/24 06:45 08/26/24 06:45 08/26/24 06:45 08/26/24 06:45 08/26/24 06:45
Review of Systems
-
History Source: Patient
All other systems: Reviewed and negative
Musculoskeletal: Reports Other (L 2nd toe pain)
Physical Exam
-
General: No Apparent Distress
HEENT: Normocephalic
Respiratory: Clear to Auscultation
Cardiac: Regular Rhythm
GI: Soft, Nontender and Nondistended
Musculoskeletal: Other (L 2nd toe redness and swelling)
Neuro: Awake, Alert, Oriented and AO x 3
Psych: Calm
[2024-08-26] MEDS: ALDACTONE 25 MG PO (08:39)
[2024-08-26] MEDS: FLOMAX 0.4 MG PO (08:40)
[2024-08-26] MEDS: MUCINEX 600 MG PO (08:41)
[2024-08-26] MEDS: STERILE WATER FOR INJECTION 10 ML IV ×3 (08:41→23:51)
[2024-08-26] MEDS: PROTONIX 40 MG PO (08:41)
[2024-08-26] MEDS: NORVASC 2.5 MG PO (08:41)
[2024-08-26] MEDS: SINGULAIR 10 MG PO (08:41)
[2024-08-26] MEDS: MAXIPIME 2000 MG IV ×3 (08:41→23:51)
[2024-08-26] MEDS: NOVOLOG FLEXPEN-LOW RESISTANCE 1 UNITS SC ×2 (09:15→16:56)
--- NOTE | 2024-08-26 09:53 | PHA.VAN.FU ---
Vancomycin Assessment / Plan
- Assessment
Renal Function: Stable
WBC's are: Trending Down
In the past 24 hrs, patient has been: Afebrile
Concomitant Antimicrobials: Cefepime
- Dosing Plan
Continue: Vanc 1000mg q12
- Monitoring Plan
No level(s) ordered at this time: Consider levels after 08/27 1800 dose.
- Follow Up
Pharmacy will continue to follow.
Vancomycin Follow UP
- -
Patient Age: 79
Patient Sex: Male
Vancomycin Day #: 2
Indication: SSTI
Requesting Provider: IVAN
Height / Weight:
Height 5 ft 11 in
Actual Weight 96.785 kg
Pertinent Past Medical History: DM
- Vital Signs / Lab Results
Temp Pulse Resp BP Pulse Ox
98.1 F 80 20 129/74 98
08/26/24 06:45 08/26/24 08:39 08/26/24 06:45 08/26/24 08:39 08/26/24 06:45
Lab Results - Hematology
08/25/24 08/26/24
16:21 05:57
WBC 9.5 7.6
Lab Results - Chemistry
08/25/24 08/26/24
16:21 05:57
BUN 22 H 21 H
Creatinine 1.0 1.0
Estimated Creat Clear 62
Albumin 3.8
Microbiology Results
08/25/24 19:34 Gram Stain - Preliminary
Toe
[2024-08-26] MEDS: LOZOL PO (11:09)
[2024-08-26 11:45] LABS: Glucose - Point of Care 139 mg/dl (70-99)
[2024-08-26] MEDS: NOVOLOG FLEXPEN-LOW RESISTANCE SC (13:00)
[2024-08-26 16:07] VITALS: BP 151/76
[2024-08-26] MEDS: LOVENOX 40 MG SC (16:50)
[2024-08-26] MEDS: XALATAN OPHTHALMIC SOLUTION 1 DROP BOTH EYES (16:51)
[2024-08-26 16:56] LABS: Glucose - Point of Care 183 mg/dl (70-99)
[2024-08-26] MEDS: TRICOR 145 MG PO (21:19)
[2024-08-26] MEDS: ZESTRIL 40 MG PO (21:23)
[2024-08-26 22:10] LABS: Glucose - Point of Care 179 mg/dl (70-99)
[2024-08-26 23:00] VITALS: BP 156/79
[2024-08-27] MEDS: VANCOCIN 200 IV ×2 (05:22→18:28)
[2024-08-27 06:00] VITALS: BMI 29.7
[2024-08-27 07:28] VITALS: BP 159/69
[2024-08-27 07:53] LABS: Glucose - Point of Care 148 mg/dl (70-99)
[2024-08-27 08:12] LABS: % Basophils 0.5 % (0-2); % Eosinophils 4.7 % (0-6); % Immature Granulocytes 0.3 % (0-0.5); % Lymphocytes 16.6 % (20.5-51.1); % Monocytes 9.5 % (1.7-9.3); % Neutrophils 68.4 % (42.2-75.2); Absolute Eosinophils 0.3 10^3/uL (0-0.7); Absolute Monocytes 0.6 10^3/uL (0.1-0.6); Absolute Neutrophils 4.2 10^3/uL (1.4-6.5); Hematocrit 39.8 % (39.0-52.0); Hemoglobin 13.5 g/dL (13.0-18.0); Mean Corp Hgb Conc. 33.9 g/dL (33.0-37.0); Mean Corpuscular Hgb 31.1 pg (27.0-31.0); Mean Corpuscular Volume 91.7 fL (80.0-94.0); Mean Platelet Volume 9.2 fL (7.4-10.4); Nucleated Red Blood Cells % 0 % (-); Platelet Count 277 10^3/uL (130-400); Red Blood Cell Count 4.34 10^6/uL (4.70-6.10); Red Cell Dist. Width 12.9 % (11.5-14.5); White Blood Cell Count 6.2 10^3/uL (4.8-10.8)
[2024-08-27] MEDS: NOVOLOG FLEXPEN-LOW RESISTANCE SC ×3 (08:23→16:35)
[2024-08-27 08:46] LABS: ALT (SGPT) 32 U/L (0-50); AST (SGOT) 26 U/L (17-59); Albumin 3.9 g/dl (3.5-5.0); Alkaline Phosphatase 38 U/L (38-126); Blood Urea Nitrogen 22 mg/dl (9-20); Calcium 9.3 mg/dl (8.4-10.2); Carbon Dioxide 33 mmol/L (22-30); Chloride 95 mmol/L (98-107); Estimated Creatinine Clearance 69 ml/min; Glucose 155 mg/dl (70-99); Magnesium 1.8 mg/dl (1.6-2.3); Potassium 3.7 mmol/L (3.5-5.1); Sodium 136 mmol/L (135-145); Total Bilirubin 0.6 mg/dl (0.2-1.3); Total Protein 6.6 g/dl (6.3-8.2); eGFR > 60.00
--- NOTE | 2024-08-27 08:51 | VNURNOTE ---
Chart reviewed. Patient is current with [facility] nursing, PT. Will continue to follow hospital course and DC plans.
[2024-08-27] MEDS: LOZOL 2.5 MG PO (08:57)
[2024-08-27] MEDS: STERILE WATER FOR INJECTION 10 ML IV ×2 (08:57→16:24)
[2024-08-27] MEDS: MAXIPIME 2000 MG IV ×2 (08:57→16:24)
[2024-08-27] MEDS: SINGULAIR 10 MG PO (08:58)
[2024-08-27] MEDS: MUCINEX 600 MG PO (08:58)
[2024-08-27] MEDS: NORVASC 2.5 MG PO (08:58)
[2024-08-27] MEDS: ALDACTONE 25 MG PO (08:58)
[2024-08-27] MEDS: FLOMAX 0.4 MG PO (08:58)
[2024-08-27] MEDS: PROTONIX 40 MG PO (08:58)
--- NOTE | 2024-08-27 10:07 | PHA.VAN.FU ---
Vancomycin Assessment / Plan
- Assessment
Renal Function: Stable
WBC's are: WNL
In the past 24 hrs, patient has been: Afebrile
Concomitant Antimicrobials: cefepime 2 g q8h
- Dosing Plan
Continue: vanc 1000 mg q12h
- Monitoring Plan
Peak Level: 08/27 2030 - after 4th maint dose
Trough Level: 08/28 530
- Follow Up
Pharmacy will continue to follow.
Vancomycin Follow UP
- -
Patient Age: 79
Patient Sex: Male
Vancomycin Day #: 3
Indication: SSTI
Requesting Provider: IVAN
Height / Weight:
Height 5 ft 11 in
Actual Weight 96.479 kg
Pertinent Past Medical History: DM
- Vital Signs / Lab Results
Temp Pulse Resp BP Pulse Ox
98.2 F 73 17 159/69 96
08/27/24 07:28 08/27/24 08:57 08/27/24 07:28 08/27/24 08:57 08/27/24 07:28
Lab Results - Hematology
08/25/24 08/26/24 08/27/24
16:21 05:57 07:08
WBC 9.5 7.6 6.2
Lab Results - Chemistry
08/25/24 08/26/24 08/27/24
16:21 05:57 07:08
BUN 22 H 21 H 22 H
Creatinine 1.0 1.0 0.9
Estimated Creat Clear 62 69
Albumin 3.8 3.9
Microbiology Results
08/25/24 19:34 Wound Culture - Preliminary
Toe Gram Stain - Preliminary
08/26/24 07:36 MRSA Screen - Final
Nose No Methicillin Resistant Staphylococcus aureus isolated.
--- NOTE | 2024-08-27 10:52 | W.PN.HOSP.TC ---
Today's Communication/Plan
-
Podiatry to assess MRI result for further mgmt
Assessment / Plan
Assessment / Plan
79yo M with PMHX of DM, HTN, HLD, COPD, NOEMI came with redness and swelling of the L 2nd toe started on the day prior. He had a wound on it for past 4 month and had surgical procedure in the office of less the 1 week ago. On the follow up
5 days prior to admission - no postOP concerns, as per patient.
A/P:
#L 2nd great to diabetic wound s/p recent tendon resection with cellulitis and purulence
XR unremarkable
Need MRI LLE
VAnco/Cefepime pending wound Cx
CRP 177
ESR WNL
wound care
Podiatry consult
#Hypomagnesemia
#Hypokalemia
replete and follow
#DM type 2 with neuropathy
Insulin SS, Accuchecks and DM diet
Hold Metformin
#Essential HTN
#COPD not in exacerbation
#HLD
#Glaucoma
#BPH
cont home meds
DVT ppx lovenox
Full code
I have spent at least 56min reviewing chart, test results, communication with consultants and direct patient care
Anticipated Discharge: > 48 hours
Subjective/Interval History
-
Date of Service: August 27, 2024
Objective Data
-
Labs:
Laboratory Results
08/27/24
07:08
WBC 6.2
Hgb 13.5
Hct 39.8
Plt Count 277
Sodium 136
Potassium 3.7
Chloride 95 L
Carbon Dioxide 33 H
BUN 22 H
Creatinine 0.9
Glucose 155 H
Calcium 9.3
Total Bilirubin 0.6
AST 26
ALT 32
Alkaline Phosphatase 38
Vital Signs:
Vital Signs
Temp Pulse Resp BP Pulse Ox
98.2 F 73 17 159/69 96
08/27/24 07:28 08/27/24 08:57 08/27/24 07:28 08/27/24 08:57 08/27/24 07:28
Review of Systems
-
History Source: Patient
All other systems: Reviewed and negative
Physical Exam
-
General: No Apparent Distress
HEENT: Normocephalic
Respiratory: Clear to Auscultation
Cardiac: Regular Rhythm
Skin: Other (L 2nd toe swelling and purulence)
Neuro: Awake, Alert, Oriented and AO x 3
Psych: Calm
[2024-08-27 11:44] LABS: Glucose - Point of Care 148 mg/dl (70-99)
--- NOTE | 2024-08-27 13:03 | CON.MD ---
Addendum entered and electronically signed by Ale Pena DPM 09/14/24 14:28:
Correction to the assessment:
Left 2nd toe acute osteomyelitis
Original Note:
Consultation - Medical
-
Left second toe swelling and pain
History of Present Illness
This is a 79-year-old with multiple medical comorbidities including xdn-avfikmn-azoinnpqs diabetes hypertension hyperlipidemia COPD and NOEMI who presented to the emergency department with redness and swelling around the left second toe.
Patient is know to me as an outpatient. He was previous treating at the wound care center for many month for a left distal 2nd toe ulceration on a toe with a contracted flexion deformity. It was non healing and for this reason opted to perform a
percutaneous flexor tenotomy. At his last visit to the office he appeared to healing well with no complications. On 08/23 he called the office asking for antibiotics due to some redness about the toe. He states that he could not be seen due to
his newly positive covid test on 08/22. We planned to meet this Saturday to evaluated the toe when he was feeling well enough to come to the office. On 08/25 he presented to the ER and I was consulted to evaluate him today. Patient has also been
having intermittent fevers with a cough. He was diagnosed with COVID based on a positive test at home on Saturday. Not requiring oxygen at the moment however family stated that he was close requiring oxygen 2 days ago.
Past Medical History
Past Medical History: Reports COPD, HTN, Hypercholesterolemia and NIDDM
Additional Past Medical History:
NOEMI on CPAP
BPH
Past Surgical History: Reports Other
Social History
Tobacco: Former Smoker
Alcohol: None
Drug: None
Personal:
Living: With Family
Employment: Retired
Family History
Family History: Not pertinent
Allergies
Allergy/AdvReac Type Severity Reaction Status Date / Time
Spgxses-LHQ-SyH Reductase Allergy muscle Verified 07/17/24 04:34
Inhibitor weakness
Home Medications
fenofibrate 160 mg tablet 160 mg PO HS High cholesterol 05/10/21
metformin 1,000 mg tablet 1,000 mg PO BID Diabetes 05/10/21
montelukast 10 mg tablet 10 mg PO DAILY Allergies 05/10/21
omeprazole 40 mg capsule,delayed release 40 mg PO DAILY Gastrointestinal issue 05/10/21
tamsulosin 0.4 mg capsule 0.4 mg PO DAILY Urinary issue 05/10/21
ascorbic acid (vitamin C) 250 mg tablet (Vitamin C) 250 mg PO SUTUTHFR 11/16/22
beclomethasone dipropionate 80 mcg/actuation HFA breath activated aerosol (Qvar RediHaler) 1 inh inhalation PRN PRN shortness of breath 11/16/22
calcium 400 mg (carbonate)-magnesium 167 mg (oxide)-D3 133 unit tablet (Calcium Magnesium plus D) 1 tab PO DAILY 11/16/22
cholecalciferol (vitamin D3) 125 mcg (5,000 unit) tablet (Vitamin D3) 125 mcg PO DAILY 11/16/22
guaifenesin 600 mg tablet, extended release 12 hr (Mucinex) 600 mg PO DAILY 11/16/22
latanoprost 0.005 % eye drops 1 drp BOTH EYES QPM 11/16/22
therapeutic multivitamin 1 tab PO DAILY ##0 11/16/22
amlodipine 2.5 mg tablet 2.5 mg PO DAILY Blood pressure #1 tab 12/11/22
docusate sodium 100 mg capsule (Colace) 100 mg PO BID #60 caps 12/11/22
indapamide 2.5 mg tablet 2.5 mg PO DAILY #1 tab 12/11/22
sennosides 8.6 mg tablet (senna) 17.2 mg (2 x 8.6 mg) PO BID #30 tabs 12/11/22
spironolactone 25 mg tablet 25 mg PO DAILY #1 tab 12/11/22
albuterol sulfate 90 mcg/actuation aerosol inhaler 2 puff inhalation R Q4HPRN PRN shortness of breath 07/17/24
coQ10 (ubiquinol) 100 mg capsule 100 mg PO DAILY 07/17/24
lisinopril 40 mg tablet 40 mg PO HS Blood pressure 07/17/24
semaglutide 0.25 mg or 0.5 mg (2 mg/1.5 mL) subcutaneous pen injector (Ozempic) 0.25 mg SC PALUMBO 07/17/24
Physical Exam: palpable pulses, CFT WNL to toes, decreased pedal hair, erythema extending from the edematous 2nd toe to the dorsal foot. The toe plantarly at the site of the percutaneous tenotomy has a small amount of purulent drainage expressed
with compression. the wound the was previously present on the distal tip of the toe appears healed now.
X-ray: there is mild soft tissue swelling of the second toe without radiographic evidence of underlying osteomyelitis.
MRI: findings suspicious for possible early and/or low-grade acute osteomyelitis involving the second distal phalanx and middle phalanx.
Vascular studies:
1. Right lower extremity: HE not obtainable secondary to noncompressibility of the vessels (medial calcinosis). TBI mildly reduced 0.61. Multiphasic waveforms from common femoral through popliteal artery with no velocity elevation to suggest any
significant stenosis. Continuous Doppler waveforms at the dorsalis pedis and posterior tibial arteries are also multiphasic.
2. Left lower extremity: HE 1.22 within normal limits, though this may be artificially elevated. TBI moderately reduced to 0.42. Multiphasic waveforms from common femoral through popliteal artery with no velocity elevation to suggest any
significant stenosis. There is a transition to monophasic waveforms in the popliteal artery with monophasic continuous Doppler waveforms at the dorsalis pedis and posterior tibial arteries as well. Findings may be consistent with infrapopliteal
artery disease.
Assessment:
Left 2nd digit wound with cellulitis
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
Plan:
He is evaluated at bedside. Wound was flushed with saline and bandaged with DSD. X-rays and MRI reviewed and discussed. HE result reviewed - recommend vascular consult for toe amputation clearance - Re: healing potential.
We discussed the benefits of toe amputation at this point. Given his long standing distal toe wound and MRI positive for distal toe OM, I recommend amputation. He is agreeable. Surgical consent reviewed at bedside. Risks, benefits and
complications of surgery are discussed.
continue. Vanco/cefipime. Wound cultures pending.
[2024-08-27 15:07] VITALS: BP 164/71
[2024-08-27 16:30] LABS: Glucose - Point of Care 122 mg/dl (70-99)
--- NOTE | 2024-08-27 17:28 | CM ---
Spoke with patient's to obtain information for assessment. Patient's stated that patient lives with her in a two story, split level home with one step to enter. She described patient as independent with his ADLs, personal care, dressing
and bathing. He can cook, clean, do remote pilot operator and laundry. He is able to drive and can transport himself to his appointments and do his own shopping.
He has had VN in the past.
He has not been to a SNF.
Patient has a prescription plan and uses, [facility] in [place] for all of his medications.
Patient's PCP is, Donna Murillo.
Patient's stated that when patient is stable she would like for him to return home with her. She relayed that her daughter is close and supportive. She confirmed that she can handle the scope of his care.
Plan: Case management will continue to follow and assist with discharge planning. Home, VN if indicated. Will watch for any IV ABX needs.
[2024-08-27] MEDS: LOVENOX 40 MG SC (18:29)
[2024-08-27] MEDS: XALATAN OPHTHALMIC SOLUTION 1 DROP BOTH EYES (18:37)
[2024-08-27] MEDS: ROXICODONE 5 MG PO (20:49)
[2024-08-27] MEDS: TRICOR 145 MG PO (21:45)
[2024-08-27] MEDS: ZESTRIL PO ×2 (21:46→22:14)
[2024-08-27 21:49] LABS: Vancomycin Peak 23.9 ug/ml (18-26)
[2024-08-27 21:53] LABS: Glucose - Point of Care 175 mg/dl (70-99)
[2024-08-27 23:25] VITALS: BP 152/64
[2024-08-28] VITALS (9 sets, daily range): BP systolic 126–185; BP diastolic 62–91; BMI 29.6
[2024-08-28] MEDS: STERILE WATER FOR INJECTION 10 ML IV ×3 (00:14→15:53)
[2024-08-28] MEDS: MAXIPIME 2000 MG IV ×3 (00:14→15:36)
[2024-08-28] MEDS: VANCOCIN 200 IV (05:59)
[2024-08-28 07:13] LABS: Blood Urea Nitrogen 22 mg/dl (9-20); Calcium 9.5 mg/dl (8.4-10.2); Carbon Dioxide 33 mmol/L (22-30); Chloride 95 mmol/L (98-107); Estimated Creatinine Clearance 69 ml/min; Glucose 140 mg/dl (70-99); Sodium 137 mmol/L (135-145); Vancomycin Trough 14.6 ug/ml (5-20); eGFR > 60.00
--- NOTE | 2024-08-28 07:24 | CON.VAS ---
Addendum entered and electronically signed by Rohit Euceda MD 08/28/24 08:27:
Seen and examined with USHA Becker. Agree with findings below. Very pleasant 79-year-old diabetic male with 4-month history of left second toe redness and swelling. Medical history also significant for hypertension, hyperlipidemia, COPD, obstructive
sleep apnea. Patient denies any significant tobacco use (in his teenage years only), denies any coronary disease. No prior lower extremity revascularizations. He notes that he has been seeing Dr. Pena in the outpatient setting for management
of this left distal second toe ulceration in the setting of a flexion deformity. However due to worsening redness and swelling he was brought to the hospital. He was diagnosed with COVID positive just prior to this admission.
On exam/he is awake and alert. Head is normocephalic and atraumatic. Eyes are anicteric. Neck is soft without jugular venous distention. Breathing is unlabored. Abdomen is soft. Lower extremity with 2+ femoral and popliteal pulses easily
palpable bilaterally. On the right side 1+/2+ DP pulse, on the left side 2+ DP pulse easily strongly palpable. Feet are both warm and pink and well-perfused. Left second toe with some cellulitis.
I reviewed MRI report that demonstrates findings suspicious for early or low-grade distal second toe osteomyelitis. Noninvasive arterial studies reviewed. Left-sided HE is 1.22 which is within normal limits. This may or may not be artificially
elevated. Digital pressure on the left side is 64 mmHg.
Plan/ Left second toe osteomyelitis. Some concern for possible peripheral arterial disease, but I do not know that there is significant arterial insufficiency that would be amenable to treatment. He has an easily palpable DP pulse. In addition no
evidence of significant femoral through popliteal artery stenosis. 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 Given easily palpable strong pulse and normal HE on the left side, would recommend proceeding with toe amputation. His toe
pressure is marginal for wound healing. We will see him in close follow-up in the office within the next week or 2 and if signs of nonhealing, we will pursue angiography at that juncture. Discussed this all with him. Patient is in agreement with
the plan.
Original Note:
Consultation
Consultation Request
Date/Time Consultation Performed: 08/28/24
Requesting Provider: Hospitalist
Performing Provider: Camilla Becker, USHA-C for Rohit Euceda MD
Reason for Consultation: Abnormal TBI in setting of nonhealing left second digit wound
Medical History
-
Chief Complaint: Left foot second digit swelling, pain, and drainage
History of Present Illness:
This is an 79-year-old male with significant past medical history of COPD, diabetes, hypertension, hypercholesterolemia, BPH, and sleep apnea who reported to [place] ED on 08/25/2024 reporting worsening nonhealing left second digit foot wound.
Patient notes that he has had ongoing left second digit wound for several weeks, recently underwent percutaneous flexor tenotomy in outpatient setting by coal hauler operator Dr. Pena. He endorses that he was doing well until roughly a week ago when he
noted increased erythema and drainage at left second digit. He was recently diagnosed on 08/22/2024 with COVID via home testing kit after he experienced fevers, chills and cough; thus he called Dr. Pena's office and she sent a prescription over
for p.o. Keflex. However on 08/25/2024 he presented to ED when he noted worsening symptoms at left foot including increasing erythema and pain. Arterial duplex with HE/TBI was obtained, noting decreased TBI left foot, prompting vascular
consultation. Currently he is without complaints and is scheduled for surgical intervention with coal hauler operator Dr. Pena today.
Past Medical History
Past Medical History: COPD, HTN, Hypercholesterolemia, NIDDM and Other (NOEMI on CPAP, BPH)
Past Surgical History: Orthopedic (left reverse total shoulder arthroplasty with augmented glenoid 12/23) and Other (percutaneous flexor tenotomy left foot 08/25)
Social History
Tobacco: Former Smoker
Alcohol: None
Drug: None
Personal:
Living: With Family
Employment: Retired
Allergies / Home Medications
Allergy/AdvReac Type Severity Reaction Status Date / Time
Rzynvsv-POG-ThD Reductase Allergy muscle Verified 07/17/24 04:34
Inhibitor weakness
�Medication �Instructions �Recorded �Confirmed �Type
fenofibrate 160 mg tablet 160 mg PO HS High cholesterol 05/10/21 07/17/24 History
metformin 1,000 mg tablet 1,000 mg PO BID Diabetes 05/10/21 07/17/24 History
montelukast 10 mg tablet 10 mg PO DAILY Allergies 05/10/21 07/17/24 History
omeprazole 40 mg capsule,delayed 40 mg PO DAILY Gastrointestinal 05/10/21 07/17/24 History
release issue
tamsulosin 0.4 mg capsule 0.4 mg PO DAILY Urinary issue 05/10/21 07/17/24 History
ascorbic acid (vitamin C) 250 mg 250 mg PO SUTUTHFR 11/16/22 07/17/24 History
tablet (Vitamin C)
beclomethasone dipropionate 80 1 inh inhalation PRN PRN shortness 11/16/22 07/17/24 History
mcg/actuation HFA breath activated of breath
aerosol (Qvar RediHaler)
calcium 400 mg 1 tab PO DAILY 11/16/22 07/17/24 History
(carbonate)-magnesium 167 mg
(oxide)-D3 133 unit tablet
(Calcium Magnesium plus D)
cholecalciferol (vitamin D3) 125 125 mcg PO DAILY 11/16/22 07/17/24 History
mcg (5,000 unit) tablet (Vitamin
D3)
guaifenesin 600 mg tablet, 600 mg PO DAILY 11/16/22 07/17/24 History
extended release 12 hr (Mucinex)
latanoprost 0.005 % eye drops 1 drp BOTH EYES QPM 11/16/22 07/17/24 History
therapeutic multivitamin 1 tab PO DAILY ##0 11/16/22 07/17/24 History
amlodipine 2.5 mg tablet 2.5 mg PO DAILY Blood pressure #1 12/11/22 07/17/24 Rx
tab
docusate sodium 100 mg capsule 100 mg PO BID #60 caps 12/11/22 07/17/24 Rx
(Colace)
indapamide 2.5 mg tablet 2.5 mg PO DAILY #1 tab 12/11/22 07/17/24 Rx
sennosides 8.6 mg tablet (senna) 17.2 mg (2 x 8.6 mg) PO BID #30 12/11/22 07/17/24 Rx
tabs
spironolactone 25 mg tablet 25 mg PO DAILY #1 tab 12/11/22 07/17/24 Rx
albuterol sulfate 90 mcg/actuation 2 puff inhalation R Q4HPRN PRN 07/17/24 07/17/24 History
aerosol inhaler shortness of breath
coQ10 (ubiquinol) 100 mg capsule 100 mg PO DAILY 07/17/24 07/17/24 History
lisinopril 40 mg tablet 40 mg PO HS Blood pressure 07/17/24 07/17/24 History
semaglutide 0.25 mg or 0.5 mg (2 0.25 mg SC PALUMBO 07/17/24 07/17/24 History
mg/1.5 mL) subcutaneous pen
injector (Ozempic)
Review of Systems
-
History Source: Patient
Constitutional: Reports Fever (Current COVID infection) and Chills (Current COVID infection)
EENT: Reports No Symptoms
Respiratory: Reports Cough
Cardiac: Reports No Symptoms
Abdomen/GI: Reports No Symptoms
: Reports No Symptoms
Musculoskeletal: Reports No Symptoms
Skin: Reports Other (Left second digit wound with drainage, erythema, and pain with palpation)
Neurological: Reports No Symptoms
Endocrine: Reports No Symptoms
Physical Exam
Vital Signs
Temp Pulse Resp BP Pulse Ox
98.4 F 76 18 152/64 95
08/27/24 23:25 08/27/24 23:25 08/27/24 23:25 08/27/24 23:25 08/27/24 23:25
Lab Results
08/27/24 07:08
08/28/24 06:01
Physical Exam
General: No Apparent Distress and Comfortable
HEENT: Normocephalic, Anicteric and Atraumatic
Respiratory: Non Labored Respirations
Cardiac: Negative JVD
GI: Soft, Non Tender and Non Distended
Musculoskeletal: No Edema
Skin: Warm and Other (Left second digit wound with drainage, erythema, and pain with palpation)
Neuro: Awake and Alert
Psych: Calm
Pulses: Bilateral Femoral: +2, Left Dorsalis Pedis: +2 (Nonpalpable left PT pulse), Right Dorsalis Pedis: +1 and Right Posterior Tibial: +1
Assessment / Plan
-
Assessment: 79-year-old male with cellulitis of the left second digit, within normal limits HE but decreased TBI on noninvasive arterial duplex imaging
Plan:
Given palpable DP pulse at left foot and normal HE, possible likelihood that patient can heal amputation site following podiatry intervention today. Will place close follow-up appointment with our vascular surgery office in discharge
instructions, if evidence of nonhealing will plan for outpatient angiogram.
Patient seen and examined with Dr. Rohit Euceda, plan reviewed with attending.
[2024-08-28] MEDS: FLOMAX 0.4 MG PO (07:49)
[2024-08-28] MEDS: MUCINEX 600 MG PO (07:49)
[2024-08-28] MEDS: PROTONIX 40 MG PO (07:49)
[2024-08-28] MEDS: NORVASC 2.5 MG PO (07:49)
[2024-08-28] MEDS: LOZOL 2.5 MG PO (07:49)
[2024-08-28] MEDS: SINGULAIR 10 MG PO (07:50)
[2024-08-28] MEDS: ALDACTONE 25 MG PO (07:50)
[2024-08-28 08:02] LABS: Glucose - Point of Care 158 mg/dl (70-99)
[2024-08-28] MEDS: NOVOLOG FLEXPEN-LOW RESISTANCE 1 UNITS SC (08:15)
--- NOTE | 2024-08-28 08:16 | PHA.VAN.FU ---
Vancomycin Assessment / Plan
- Assessment
Renal Function: Stable
In the past 24 hrs, patient has been: Afebrile
Concomitant Antimicrobials: cefepime 2g q8h
- Assessment - Therapeutic Drug Monitoring
Peak level was drawn: Appropriately (23.9)
Extrapolated Cmin (mcg/mL): 14.2
Trough Drawn: Appropriately (14.6)
Levels were drawn: At steady state
Calculated AUC (mcg*h/mL): 476
Calculated ke: 0.057
Calculated half life (H): 12.2
Calculated Vd (L): 73.69
Calculated Vanc CL (ml/min): 4.2
- Dosing Plan
Continue: continue vancomycin 1000 mg q12h
- Monitoring Plan
Level(s) appropriate: Recheck trough at minimum of weekly intervals, Repeat sooner for changes in renal function or clinical status
- Follow Up
Pharmacy will continue to follow.
Vancomycin Follow UP
- -
Patient Age: 79
Patient Sex: Male
Vancomycin Day #: 3
Indication: SSTI
Requesting Provider: IVAN
Pertinent Antimicrobial Allergies:
none
Height / Weight:
Height 5 ft 11 in
Actual Weight 96.275 kg
IBW in k.3 kg
Adjusted BW in k.7 kg
Pertinent Past Medical History: DM
- Vital Signs / Lab Results
Temp Pulse Resp BP Pulse Ox
97.4 F 83 18 144/91 96
08/28/24 07:10 08/28/24 07:49 08/28/24 07:10 08/28/24 07:49 08/28/24 07:10
Lab Results - Hematology
08/25/24 08/26/24 08/27/24
16:21 05:57 07:08
WBC 9.5 7.6 6.2
Lab Results - Chemistry
08/25/24 08/26/24 08/27/24
16:21 05:57 07:08
BUN 22 H 21 H 22 H
Creatinine 1.0 1.0 0.9
Estimated Creat Clear 62 69
Albumin 3.8 3.9
08/28/24
06:01
BUN 22 H
Creatinine 0.9
Estimated Creat Clear 69
Albumin
Microbiology Results
08/25/24 19:34 Wound Culture - Preliminary
Toe Gram Stain - Preliminary
08/26/24 07:36 MRSA Screen - Final
Nose No Methicillin Resistant Staphylococcus aureus isolated.
Therapeutic Drug Monitoring
Vancomycin Peak 23.9 ug/ml (18-26) 08/27/24 21:22
Vancomycin Trough 14.6 ug/ml (5-20) 08/28/24 06:01
--- NOTE | 2024-08-28 08:41 | W.PN.POD ---
Today's Communication
Today's Communication
Left 2nd toe osteomyelitis
Assessment / Plan
-
Left 2nd toe osteomyelitis
Left foot cellulitis
Type 2 Diabetes Mellitus with neuropathy
He is evaluated and bandages changed at bedside.
Discussed patient with vascular - ok to proceed with toe amp. Recommend that he follow up with them outpatient
Surgical consent is reviewed and discussed. He wishes to proceed with left 2nd toe amputation. risks, benefits, complications of surgery are discussed.
Vanco/ cefipime
Subjective
Chief Complaint
Left 2nd toe infection/osteomyelitis
Subjective
Patient awake and comfortable/ no complaints of pain
Objective
Temp Pulse Resp BP Pulse Ox
97.4 F 83 18 144/91 96
08/28/24 07:10 08/28/24 07:49 08/28/24 07:10 08/28/24 07:49 08/28/24 07:10
08/27/24 07:08
08/28/24 06:01
Vital Signs and Lab results were reviewed.
Physical Exam
Physical Exam
Left foot erythema decreased. DP pulse palpable, foot feels perfused, loss of pedal hair. Toe is edematous with erythema, no purulence expressed today/
--- NOTE | 2024-08-28 10:43 | W.PN.HOSP.TC ---
Today's Communication/Plan
-
cont ABx pending Sx
Assessment / Plan
Assessment / Plan
79yo M with PMHX of DM, HTN, HLD, COPD, NOEMI came with redness and swelling of the L 2nd toe started on the day prior. He had a wound on it for past 4 month and had surgical procedure in the office of less the 1 week ago. On the follow up
5 days prior to admission - no postOP concerns, as per patient.
A/P:
#L 2nd great to diabetic wound s/p recent tendon resection with osteomyelitis
XR unremarkable
US arterial showed PAD, ASA upon d/c will be reasonable. VascSx ok with proceeding with amputation. Outpatient VascSx for angio if nonhealing
VAnco/Cefepime pending postOP marging and Cx
CRP 177
ESR WNL
wound care
Podiatry consult: for amputation
#Hypomagnesemia
#Hypokalemia
replete and follow
#DM type 2 with neuropathy
Insulin SS, Accuchecks and DM diet
Hold Metformin
#Cough
reported COVID-19 positive on home test
Enhanced isolation
not hypoxic
symptomatic treatment
repeat COVID-19 PCR
#Essential HTN
#COPD not in exacerbation
#HLD
#Glaucoma
#BPH
cont home meds
DVT ppx lovenox
Full code
I have spent at least 36min reviewing chart, test results, communication with consultants and direct patient care
Anticipated Discharge: > 48 hours
Subjective/Interval History
-
Date of Service: August 28, 2024
Objective Data
-
Labs:
Laboratory Results
08/28/24
06:01
Sodium 137
Potassium 4.0
Chloride 95 L
Carbon Dioxide 33 H
BUN 22 H
Creatinine 0.9
Glucose 140 H
Calcium 9.5
Vital Signs:
Vital Signs
Temp Pulse Resp BP Pulse Ox
97.4 F 83 18 144/91 96
08/28/24 07:10 08/28/24 07:49 08/28/24 07:10 08/28/24 07:49 08/28/24 07:10
I&O
08/27/24 08/28/24 08/29/24
06:59 06:59 06:59
Intake Total 960 / 960
Balance 960 / 960
Review of Systems
-
History Source: Patient
All other systems: Reviewed and negative
Physical Exam
-
General: Comfortable
HEENT: Normocephalic
Respiratory: Clear to Auscultation
Cardiac: Regular Rhythm
Musculoskeletal: No Clubbing, No Cyanosis and No Edema
Neuro: Awake, Alert, Oriented and AO x 3
Psych: Calm
[2024-08-28 11:59] LABS: Glucose - Point of Care 135 mg/dl (70-99)
[2024-08-28] MEDS: NOVOLOG FLEXPEN-LOW RESISTANCE SC ×2 (12:07→17:02)
[2024-08-28 12:23] LABS: COVID-19 Antigen Negative (Negative)
--- NOTE | 2024-08-28 14:36 | PN.CDI ---
Addendum entered and electronically signed by Harry White MD 08/28/24 15:07:
not clinically significant
Original Note:
CDI
- -
CDI:
Physician Documentation Request
Admit Date: 08/25/24 20:35
Dear Doctor Christopher,
Patient admitted with left 2nd great toe diabetic wound.
Na levels documented below:
Laboratory Tests
08/25/24 08/26/24
16:21 05:57
Sodium 133 L 133 L
Based on the above, please clarify in the progress notes, the appropriate diagnosis, if significant, that supports the above abnormalities and additional evaluation, monitoring and/or treatment rendered:
Hyponatremia
Insignificant abnormal lab findings
Other
Use of terms such as suspected, likely, concern for, or probable (associated with a specific diagnosis that is being evaluated, monitored, or treated as if it exists) are acceptable and can be coded in the inpatient setting, when documented at the
time of discharge.
Thank you,
Tiara GARCIAN,RN,CCDS
CDI Specialist
Available via tiger text
Please use your independent medical judgment in providing your response.
--- NOTE | 2024-08-28 15:07 | PN.CDI ---
CDI
- -
CDI:
Physician Documentation Request
Admit Date: 08/25/24 20:35
Dear Doctor Becky,
Patient admitted with left 2nd great toe diabetic wound.
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
Please clarify which of the following accurately represents the acuity of the OSTEOMYELITIS :
Acute
Acute on chronic
Chronic
Other
Use of terms such as suspected, likely, concern for, or probable (associated with a specific diagnosis that is being evaluated, monitored, or treated as if it exists) are acceptable and can be coded in the inpatient setting, when documented at the
time of discharge.
Thank you,
Tiara CUNNINGHAM,RN,CCDS
CDI Specialist
Available via tiger text
Please use your independent medical judgment in providing your response.
[2024-08-28] MEDS: ROXICODONE 5 MG PO (16:40)
[2024-08-28 16:58] LABS: Glucose - Point of Care 120 mg/dl (70-99)
[2024-08-28 18:53] LABS: Glucose - Point of Care 130 mg/dl (70-99)
--- NOTE | 2024-08-28 18:56 | W.PN.UPDATE ---
Update Note
Progress Note Update
S/P Left 2nd toe amputation secondary to osteomyelitis. He tolerated the procedure well. Elevate at rest. Continue antibiotics. Will change bandage in the morning. Anticipate Discharge on po antibiotics tomorrow. May weight bear in a surgical
shoe
--- NOTE | 2024-08-28 20:30 | PTCARENOTE ---
Pt received from PACU, VSS, and no reports of pain. Post op dressing intact and no drainage. Nursing assessment complete. Pt. states no further requests at this time.
[2024-08-28] MEDS: LOVENOX SC (20:46)
[2024-08-28] MEDS: VANCOCIN IV (20:46)
[2024-08-28] MEDS: ZESTRIL 40 MG PO (21:00)
[2024-08-28] MEDS: TRICOR 145 MG PO (21:01)
[2024-08-28] MEDS: XALATAN OPHTHALMIC SOLUTION 1 DROP BOTH EYES (21:01)
[2024-08-28 22:01] LABS: Glucose - Point of Care 182 mg/dl (70-99)
[2024-08-29] MEDS: MAXIPIME 2000 MG IV ×2 (01:16→08:50)
[2024-08-29] MEDS: STERILE WATER FOR INJECTION 10 ML IV ×2 (01:16→08:49)
[2024-08-29] MEDS: ROXICODONE 5 MG PO (01:24)
[2024-08-29] MEDS: VANCOCIN 200 IV (05:35)
[2024-08-29 06:00] VITALS: BMI 29.1
[2024-08-29 07:10] VITALS: BP 157/87
[2024-08-29 07:14] LABS: % Basophils 0.5 % (0-2); % Eosinophils 3.7 % (0-6); % Immature Granulocytes 1.1 % (0-0.5); % Lymphocytes 12.3 % (20.5-51.1); % Monocytes 7.2 % (1.7-9.3); % Neutrophils 75.2 % (42.2-75.2); Absolute Eosinophils 0.3 10^3/uL (0-0.7); Absolute Immature Granulocytes 0.1 10^3/uL (0-0.05); Absolute Monocytes 0.6 10^3/uL (0.1-0.6); Hematocrit 36.8 % (39.0-52.0); Hemoglobin 12.6 g/dL (13.0-18.0); Mean Corp Hgb Conc. 34.2 g/dL (33.0-37.0); Mean Corpuscular Hgb 30.9 pg (27.0-31.0); Mean Corpuscular Volume 90.2 fL (80.0-94.0); Mean Platelet Volume 8.9 fL (7.4-10.4); Nucleated Red Blood Cells % 0 % (-); Platelet Count 332 10^3/uL (130-400); Red Blood Cell Count 4.08 10^6/uL (4.70-6.10); Red Cell Dist. Width 12.8 % (11.5-14.5); White Blood Cell Count 7.9 10^3/uL (4.8-10.8)
[2024-08-29 07:32] LABS: ALT (SGPT) 23 U/L (0-50); AST (SGOT) 20 U/L (17-59); Albumin 3.7 g/dl (3.5-5.0); Alkaline Phosphatase 36 U/L (38-126); Blood Urea Nitrogen 20 mg/dl (9-20); Calcium 9.1 mg/dl (8.4-10.2); Carbon Dioxide 31 mmol/L (22-30); Chloride 93 mmol/L (98-107); Estimated Creatinine Clearance 77 ml/min; Glucose 161 mg/dl (70-99); Potassium 3.8 mmol/L (3.5-5.1); Sodium 135 mmol/L (135-145); Total Bilirubin 0.5 mg/dl (0.2-1.3); Total Protein 6.5 g/dl (6.3-8.2); eGFR > 60.00
[2024-08-29 07:52] LABS: Glucose - Point of Care 136 mg/dl (70-99)
--- NOTE | 2024-08-29 08:11 | PHA.VAN.FU ---
Vancomycin Assessment / Plan
- Assessment
Renal Function: Stable
WBC's are: WNL
In the past 24 hrs, patient has been: Afebrile
Concomitant Antimicrobials: CEFEPIME
- Dosing Plan
Continue: 1000MG Q12H
- Monitoring Plan
Level(s) appropriate: Recheck trough at minimum of weekly intervals, Repeat sooner for changes in renal function or clinical status
- Follow Up
Pharmacy will continue to follow.
Vancomycin Follow UP
- -
Patient Age: 79
Patient Sex: Male
Vancomycin Day #: 4
Indication: SSTI
Requesting Provider: IVAN
Pertinent Antimicrobial Allergies:
none
Height / Weight:
Height 5 ft 11 in
Actual Weight 94.602 kg
IBW in k.3 kg
Adjusted BW in k.7 kg
Pertinent Past Medical History: DM
- Vital Signs / Lab Results
Temp Pulse Resp BP Pulse Ox
97.4 F 77 17 157/87 97
08/29/24 07:10 08/29/24 07:10 08/29/24 07:10 08/29/24 07:10 08/29/24 07:10
Lab Results - Hematology
08/27/24 08/29/24
07:08 06:19
WBC 6.2 7.9
Lab Results - Chemistry
08/27/24 08/28/24 08/29/24
07:08 06:01 06:19
BUN 22 H 22 H 20
Creatinine 0.9 0.9 0.8
Estimated Creat Clear 69 69 77
Albumin 3.9 3.7
Microbiology Results
08/25/24 19:34 Wound Culture - Preliminary
Toe Staphylococcus aureus
Gram Stain - Preliminary
08/28/24 11:36 Influenza Types A & B (KATE) - Final
Nasal Swab Negative for Influenza A & B, NAAT
Negative results must be combined with clinical observations
and patient history.
Nucleic Acid Amplification test (NAAT)performed on the
[employer] platform.
08/26/24 07:36 MRSA Screen - Final
Nose No Methicillin Resistant Staphylococcus aureus isolated.
Therapeutic Drug Monitoring
Vancomycin Peak 23.9 ug/ml (18-26) 08/27/24 21:22
Vancomycin Trough 14.6 ug/ml (5-20) 08/28/24 06:01
--- NOTE | 2024-08-29 08:22 | W.PN.POD ---
Today's Communication
Today's Communication
S/P left 2nd toe amputation
Assessment / Plan
-
S/P Left 2nd toe amputation secondary to osteomyelitis - POD #1
resolving Left foot cellulitis
Type 2 Diabetes Mellitus with neuropathy
He is evaluated and bandages changed at bedside.
Vanco/ cefepime currently. Anticipate D/C today on po antibiotics. Await sensitivity of staph aureus
Okay to discharge in surgical shoe - weight bearing as tolerated.
Recommend he follow up with me in the office on saturday
Subjective
Chief Complaint
S/P Left 2nd toe amputation
Subjective
Patient is awake and oriented. Resting comfortably. Relates some pain overnight, but no pain currently
Objective
Temp Pulse Resp BP Pulse Ox
97.4 F 77 17 157/87 97
08/29/24 07:10 08/29/24 07:10 08/29/24 07:10 08/29/24 07:10 08/29/24 07:10
08/29/24 06:19
08/29/24 06:19
Vital Signs and Lab results were reviewed.
Physical Exam
Physical Exam
Left foot DP pulse palpable, foot well perfused, sutures intact at 2nd toe amputation site. Bandages intact with no strikethrough. Some bloody drainage on the inner bandage. There is some erythema that blanches with compression, no active
drainage form incision site.
[2024-08-29] MEDS: NOVOLOG FLEXPEN-LOW RESISTANCE SC ×2 (08:43→13:13)
[2024-08-29] MEDS: NORVASC 2.5 MG PO (08:49)
[2024-08-29] MEDS: PROTONIX 40 MG PO (08:49)
[2024-08-29] MEDS: ASPIR LOW (ENTERIC COATED) 81 MG PO (08:49)
[2024-08-29] MEDS: ALDACTONE 25 MG PO (08:49)
[2024-08-29] MEDS: MUCINEX 600 MG PO (08:49)
[2024-08-29] MEDS: SINGULAIR 10 MG PO (08:49)
[2024-08-29] MEDS: FLOMAX 0.4 MG PO (08:49)
[2024-08-29] MEDS: LOZOL 2.5 MG PO (08:49)
--- NOTE | 2024-08-29 11:26 | W.PN.HOSP.TC ---
Today's Communication/Plan
-
stop Vanco
follow Cx and margings
Assessment / Plan
Assessment / Plan
79yo M with PMHX of DM, HTN, HLD, COPD, NOEMI came with redness and swelling of the L 2nd toe started on the day prior. He had a wound on it for past 4 month and had surgical procedure in the office of less the 1 week ago. On the follow up
5 days prior to admission - no postOP concerns, as per patient.
A/P:
#L 2nd great to diabetic wound s/p recent tendon resection with osteomyelitis
XR unremarkable
US arterial showed PAD, ASA upon d/c will be reasonable. VascSx ok with proceeding with amputation. Outpatient VascSx for angio if nonhealing
MSSA on initial wound Cx, GPC on periOP Cx - reasonable to stop Vanco
CRP 177
ESR WNL
wound care
Podiatry consult: s/p amputation on 08/28/24
#Hypomagnesemia
#Hypokalemia
replete and follow
#DM type 2 with neuropathy
Insulin SS, Accuchecks and DM diet
Hold Metformin
#Cough
reported COVID-19 positive on home test
Enhanced isolation
not hypoxic
symptomatic treatment
repeat COVID-19 PCR neg
#Essential HTN
#COPD not in exacerbation
#HLD
#Glaucoma
#BPH
cont home meds
DVT ppx lovenox
Full code
I have spent at least 36min reviewing chart, test results, communication with consultants and direct patient care
Anticipated Discharge: 24 - 48 hours
Subjective/Interval History
-
Date of Service: August 29, 2024
Objective Data
-
Labs:
Laboratory Results
08/29/24
06:19
WBC 7.9
Hgb 12.6 L
Hct 36.8 L
Plt Count 332
Sodium 135
Potassium 3.8
Chloride 93 L
Carbon Dioxide 31 H
BUN 20
Creatinine 0.8
Glucose 161 H
Calcium 9.1
Total Bilirubin 0.5
AST 20
ALT 23
Alkaline Phosphatase 36 L
Vital Signs:
Vital Signs
Temp Pulse Resp BP Pulse Ox
97.4 F 77 17 157/87 94
08/29/24 07:10 08/29/24 07:10 08/29/24 07:10 08/29/24 07:10 08/29/24 10:23
I&O
08/28/24 08/29/24 08/30/24
06:59 06:59 06:59
Intake Total 960 / 960 480 / 480
Output Total 325 / 325
Balance 960 / 960 155 / 155
Review of Systems
-
History Source: Patient
All other systems: Reviewed and negative
Physical Exam
-
General: No Apparent Distress
HEENT: Normocephalic
Respiratory: Clear to Auscultation
GI: Soft, Nontender and Nondistended
Musculoskeletal: No Clubbing, No Cyanosis and No Edema
Neuro: Awake, Alert, Oriented and AO x 3
Psych: Calm
[2024-08-29 12:22] LABS: Glucose - Point of Care 122 mg/dl (70-99)
[2024-08-29] MEDS: ANCEF 10 IV ×2 (14:54→21:47)
[2024-08-29 15:10] VITALS: BP 140/67
[2024-08-29 16:43] LABS: Glucose - Point of Care 188 mg/dl (70-99)
[2024-08-29] MEDS: NOVOLOG FLEXPEN-LOW RESISTANCE 1 UNITS SC (17:07)
[2024-08-29] MEDS: LOVENOX 40 MG SC (17:08)
[2024-08-29] MEDS: XALATAN OPHTHALMIC SOLUTION 1 DROP BOTH EYES (17:08)
[2024-08-29 21:45] LABS: Glucose - Point of Care 149 mg/dl (70-99)
[2024-08-29] MEDS: TRICOR 145 MG PO (21:47)
[2024-08-29] MEDS: ZESTRIL 40 MG PO (21:47)
[2024-08-29 23:00] VITALS: BP 125/55
[2024-08-30] MEDS: ANCEF 10 IV ×2 (05:34→13:39)
[2024-08-30 06:00] VITALS: BMI 29.2
[2024-08-30 06:47] LABS: % Basophils 0.5 % (0-2); % Eosinophils 5.1 % (0-6); % Immature Granulocytes 1.6 % (0-0.5); % Lymphocytes 14.5 % (20.5-51.1); % Monocytes 9.7 % (1.7-9.3); % Neutrophils 68.6 % (42.2-75.2); Absolute Eosinophils 0.3 10^3/uL (0-0.7); Absolute Immature Granulocytes 0.1 10^3/uL (0-0.05); Absolute Lymphocytes 0.8 10^3/uL (1.2-3.4); Absolute Monocytes 0.6 10^3/uL (0.1-0.6); Absolute Neutrophils 3.9 10^3/uL (1.4-6.5); Hematocrit 36.2 % (39.0-52.0); Hemoglobin 12.3 g/dL (13.0-18.0); Mean Corpuscular Hgb 30.5 pg (27.0-31.0); Mean Corpuscular Volume 89.8 fL (80.0-94.0); Mean Platelet Volume 8.7 fL (7.4-10.4); Nucleated Red Blood Cells % 0 % (-); Platelet Count 332 10^3/uL (130-400); Red Blood Cell Count 4.03 10^6/uL (4.70-6.10); Red Cell Dist. Width 12.8 % (11.5-14.5); White Blood Cell Count 5.7 10^3/uL (4.8-10.8)
[2024-08-30 07:00] VITALS: BP 132/73
[2024-08-30 07:40] LABS: Glucose - Point of Care 169 mg/dl (70-99)
[2024-08-30] MEDS: ALDACTONE 25 MG PO (09:17)
[2024-08-30] MEDS: MUCINEX 600 MG PO (09:17)
[2024-08-30] MEDS: SINGULAIR 10 MG PO (09:18)
[2024-08-30] MEDS: NOVOLOG FLEXPEN-LOW RESISTANCE 1 UNITS SC (09:18)
[2024-08-30] MEDS: LOZOL 2.5 MG PO (09:18)
[2024-08-30] MEDS: ASPIR LOW (ENTERIC COATED) 81 MG PO (09:18)
[2024-08-30] MEDS: FLOMAX 0.4 MG PO (09:18)
[2024-08-30] MEDS: NORVASC 2.5 MG PO (09:19)
[2024-08-30] MEDS: PROTONIX 40 MG PO (09:19)
--- NOTE | 2024-08-30 09:25 | W.PN.POD ---
Today's Communication
Today's Communication
S/P Left 2nd toe amputation
Assessment / Plan
-
S/P Left 2nd toe amputation secondary to osteomyelitis - POD #2
Resolving Left foot cellulitis
Type 2 Diabetes Mellitus with neuropathy
He is evaluated and bandages changed at bedside.
Ancef currently.
Staph aureus is methicillin sensitive - anticipate discharge on po Keflex
Okay to discharge in surgical shoe - weight bearing as tolerated.
Recommend he follow up with me in the office on
Subjective
Chief Complaint
S/P Left 2nd toe amputation
Subjective
Patient awake and oriented at bedside. No complaints
Objective
Temp Pulse Resp BP Pulse Ox
97.7 F 78 18 132/73 95
08/30/24 07:00 08/30/24 07:00 08/30/24 07:00 08/30/24 07:00 08/30/24 07:00
08/30/24 06:29
08/29/24 06:19
Vital Signs and Lab results were reviewed.
Physical Exam
Physical Exam
Left foot DP pulse palpable, foot well perfused, sutures intact at 2nd toe amputation site. Bandages intact with no strikethrough. Some bloody drainage on the inner bandage. There is some erythema that blanches with compression, significantly
decreased today. no active drainage form incision site.
--- NOTE | 2024-08-30 11:16 | W.PN.HOSP.TC ---
Today's Communication/Plan
-
dc
Assessment / Plan
Assessment / Plan
79yo M with PMHX of DM, HTN, HLD, COPD, NOEMI came with redness and swelling of the L 2nd toe started on the day prior. He had a wound on it for past 4 month and had surgical procedure in the office of less the 1 week prior to admission,
found early and/or low-grade acute osteomyelitis involving the second distal phalanx and middle phalanx on MRI, s/p amputation to the down to the level of the 2nd
metatarsophalangeal joint. The joint was disarticulated at this level, which as per further discussion with Podiatry achieved surgical curre. Reasonabel to d/c on oral Abx as per MSSA in wound culture. Medically stable for d/c with boot (provided)
and to follow with Podiatry in 4 days (scheduled).
A/P:
#L 2nd great to diabetic wound s/p recent tendon resection with osteomyelitis
XR unremarkable
US arterial showed PAD, ASA upon d/c will be reasonable. VascSx ok with proceeding with amputation. Outpatient VascSx for angio if nonhealing
MSSA on initial wound Cx, GPC on periOP Cx - reasonable to stop Vanco
CRP 177
ESR WNL
wound care
Podiatry consult: s/p amputation on 08/28/24
#Hypomagnesemia
#Hypokalemia
replete and follow
#DM type 2 with neuropathy
Insulin SS, Accuchecks and DM diet
Hold Metformin
#Cough
reported COVID-19 positive on home test
Enhanced isolation
not hypoxic
symptomatic treatment
repeat COVID-19 PCR neg
#Essential HTN
#COPD not in exacerbation
#HLD
#Glaucoma
#BPH
cont home meds
DVT ppx lovenox
Full code
I have spent at least 36min reviewing chart, test results, communication with consultants and direct patient care
Anticipated Discharge: Today
Subjective/Interval History
-
Date of Service: August 30, 2024
Objective Data
-
Labs:
Laboratory Results
08/30/24
06:29
WBC 5.7
Hgb 12.3 L
Hct 36.2 L
Plt Count 332
Vital Signs:
Vital Signs
Temp Pulse Resp BP Pulse Ox
97.7 F 78 18 132/73 95
08/30/24 07:00 08/30/24 07:00 08/30/24 07:00 08/30/24 07:00 08/30/24 07:00
I&O
08/29/24 08/30/24 08/31/24
06:59 06:59 06:59
Intake Total 480 / 480 1140 / 1140 480 / 480
Output Total 325 / 325
Balance 155 / 155 1140 / 1140 480 / 480
Review of Systems
-
History Source: Patient
All other systems: Reviewed and negative
Physical Exam
-
General: No Apparent Distress
HEENT: Normocephalic
Respiratory: Clear to Auscultation
GI: Soft, Nontender and Nondistended
Skin: Warm
Neuro: Awake, Alert, Oriented and AO x 3
Psych: Calm
--- NOTE | 2024-08-30 11:24 | W.DCSUMMARY ---
Discharge Summary
Discharge Data
Date of Admission: 08/25/24
Date of Discharge: 08/30/24
-
Pending Results: No
Hospital Course
79yo M with PMHX of DM, HTN, HLD, COPD, NOEMI came with redness and swelling of the L 2nd toe started on the day prior. He had a wound on it for past 4 month and had surgical procedure in the office of less the 1 week prior to admission,
found early and/or low-grade acute osteomyelitis involving the second distal phalanx and middle phalanx on MRI. Vasc Sx called with concern for PAD and advised to proceedd to amputation to the down to the level of the 2nd metatarsophalangeal joint.
The joint was disarticulated at this level, which as per further discussion with Podiatry achieved surgical curre. Reasonabel to d/c on oral Abx as per MSSA in wound culture. Medically stable for d/c with boot (provided) and to follow with Podiatry
in 4 days (scheduled).
I have spent at least 36min reviewing chart, test results, communication with consultants and direct patient care
Patient was managed for:
#L 2nd great to diabetic wound s/p recent tendon resection with osteomyelitis
#PAD
#Hypomagnesemia
#Hypokalemia
#DM type 2 with neuropathy
#Cough
#Essential HTN
#COPD not in exacerbation
#HLD
#Glaucoma
#BPH
Discharge Plan
-
Patient Disposition: Home (Routine Discharge)
Discharge Diagnosis/Procedures: Osteomyelitis
Referrals:
Ale Pena DPM [Active] - in three to four days
Donna Murillo CRNP [Family Provider] -
Paola Hernandez CRNP [Specified Professional Personl] - 09/11/24 10:45 am (Vascular surgery follow-up)
Prescriptions:
New
cephalexin 500 mg capsule
500 mg PO QID Qty: 28 0RF
aspirin 81 mg Tablet,Delayed Release (Dr/Ec)
81 mg PO DAILY Qty: 30 0RF
Continued
omeprazole 40 MG capsule,delayed release(DR/EC)
40 mg PO DAILY
tamsulosin 0.4 MG capsule
0.4 mg PO DAILY
metformin 1,000 MG tablet
1,000 mg PO BID
montelukast 10 MG tablet
10 mg PO DAILY
fenofibrate 160 MG tablet
160 mg PO HS
cholecalciferol (vitamin D3) [Vitamin D3] 125 mcg (5,000 unit) Tablet
125 mcg PO DAILY
guaifenesin [Mucinex] 600 mg Tablet Extended Release 12hr
600 mg PO DAILY
Qvar RediHaler 80 mcg/actuation Hfa Aerosol Breath Activated
1 inh INHALATION PRN PRN (Reason: shortness of breath)
latanoprost 0.005 % Drops
1 drp BOTH EYES QPM
therapeutic multivitamin Tablet
1 tab PO DAILY Qty: 0
ascorbic acid (vitamin C) [Vitamin C] 250 mg Tablet
250 mg PO SUTUTHFR
Calcium Magnesium plus D 400-167-133 mg-mg-unit Tablet
1 tab PO DAILY
docusate sodium [Colace] 100 mg capsule
100 mg PO BID Qty: 60 0RF
sennosides [senna] 8.6 mg tablet
17.2 mg PO BID Qty: 30 0RF
indapamide 2.5 mg Tablet
2.5 mg PO DAILY Qty: 1 0RF
Rx Instructions:
HOLD if systolic blood pressure <145 while on Oxycodone.
amlodipine 2.5 MG tablet
2.5 mg PO DAILY Qty: 1 0RF
Rx Instructions:
HOLD if systolic blood pressure <130 while on Oxycodone.
spironolactone 25 mg Tablet
25 mg PO DAILY Qty: 1 0RF
lisinopril 40 MG tablet
40 mg PO HS
Rx Instructions:
HOLD if systolic blood pressure <130 while on Oxycodone.
coQ10 (ubiquinol) 100 mg Capsule
100 mg PO DAILY
Ozempic 0.25 mg or 0.5 mg(2 mg/1.5 mL) Pen Injector
0.25 mg SC [place]BO
Patient Comments:
07/17/24- pharmacy did not have med until yesterday 07/16/24 so patien took when he got home from pharmacy
Rx Instructions:
for 4 weeks
albuterol sulfate 90 mcg/actuation HFA aerosol inhaler
2 puff INHALATION R Q4HPRN PRN (Reason: shortness of breath)
Discharge Orders:
Discharge Patient (As Directed); Ordered 08/30/24
Ordered By: Harry White
Discharge Date and Time
Print Language: GUINEAN
--- NOTE | 2024-08-30 11:45 | CM ---
entered order for discharge.
Spoke with his Melony she said that brother in law Esvin will drive him home.
Reviewed IMM which they agree on discharge.
DC on po antibiotic.
Declined offered for VN .
PLAN Home no needs
[2024-08-30 12:03] LABS: Glucose - Point of Care 119 mg/dl (70-99)
[2024-08-30] MEDS: NOVOLOG FLEXPEN-LOW RESISTANCE SC (12:12)
[2024-08-30 14:28] VITALS: BP 146/67
== END 2024-08-30 15:32 | disposition home or self-care (01) | DRG 616 ==
LOC: 3 WEST ACU 20:35
PROVIDERS: Emergency Medicine; ADMITTING PHYSICIAN Internal Medicine; ATTENDING PHYSICIAN Internal Medicine; CONSULT PHYSICIAN Podiatrist; EMERGENCY PHYSICIAN Student in an Organized Health Care Education/Training Program; FAMILY PHYSICIAN Nurse Practitioner; OTHER PHYSICIAN Surgery Vascular Surgery
PROC: 0Y6S0Z0 Detachment at Left 2nd Toe, Complete, Open Approach (ICD-10-PCS; 2024-08-28)
DX: E11.69 Type 2 diabetes mellitus with other specified complication (principal); U07.1 COVID-19; M86.172 Other acute osteomyelitis, left ankle and foot; E11.40 Type 2 diabetes mellitus with diabetic neuropathy, unspecified; E78.00 Pure hypercholesterolemia, unspecified; I10 Essential (primary) hypertension; J44.89 Other specified chronic obstructive pulmonary disease; E83.42 Hypomagnesemia; L03.032 Cellulitis of left toe; E87.6 Hypokalemia; G47.33 Obstructive sleep apnea (adult) (pediatric); N40.0 Benign prostatic hyperplasia without lower urinary tract symptoms; B95.61 Methicillin susceptible Staphylococcus aureus infection as the cause of diseases classified elsewhere; Z87.891 Personal history of nicotine dependence; Z88.8 Allergy status to other drugs, medicaments and biological substances; Z11.52 Encounter for screening for COVID-19
CPT/HCPCS: 88305; 88311; 73630; 73660; 73721; 80048; 80053; 80202; 82962; 83735; 85025; 85027; 85652; 86140; 87070; 87075; 87147; 87186; 87205; 87502; 87811; 93922; 93925; 99285

== ENCOUNTER → 2024-11-04 12:51 | Outpatient (REF) | payer OTHER, SELFPAY | LOC: HWRCS 12:51 | PROVIDERS: ATTENDING PHYSICIAN Nurse Practitioner; FAMILY PHYSICIAN Nurse Practitioner | DX: I45.2 Bifascicular block (principal); R42 Dizziness and giddiness; R41.0 Disorientation, unspecified; I35.0 Nonrheumatic aortic (valve) stenosis | CPT/HCPCS: 93306 ==

== ENCOUNTER → 2025-02-10 12:45 | Outpatient (REF) | payer OTHER, SELFPAY | LOC: RCS 12:45 | PROVIDERS: ATTENDING PHYSICIAN Internal Medicine Cardiovascular Disease; FAMILY PHYSICIAN Nurse Practitioner | DX: I45.2 Bifascicular block (principal) | CPT/HCPCS: 93225; 93226 ==